=== PATIENT | male | born 1960 | race Caucasian/White ===

== ENCOUNTER 2021-08-23 14:31 | Outpatient (REF) | payer OTHER, SELFPAY ==
--- NOTE | ~2021-08-23 | XR_ITS ---
EXAMINATION: XR CHEST CLINICAL INFORMATION: Cough. COMPARISON: None TECHNIQUE: 2 views of the chest were obtained. FINDINGS: No significant abnormality is noted involving the heart, lungs, mediastinum, bony thorax or soft tissues. XR/XR chest 2V IMPRESSION: Unremarkable chest examination.
== END 2021-08-23 14:32 | disposition home or self-care (01) ==
LOC: HO.HMGCX 14:31
PROVIDERS: Visit Provider Physician Assistant Medical
DX: R05.9 Cough, unspecified (principal)
CPT/HCPCS: 71046

== ENCOUNTER 2021-08-25 10:39 | Outpatient (REF) | payer OTHER, SELFPAY ==
[2021-08-25 11:06] LABS: Binax Internal Control QC Valid; Binax Now Covid-19 Ag Negative (Negative)
== END 2021-08-25 10:40 | disposition home or self-care (01) ==
LOC: HO.HMGCLDS 10:39
PROVIDERS: Visit Provider Physician Assistant Medical
DX: Z13.89 Encounter for screening for other disorder (principal)

== ENCOUNTER 2022-01-26 08:28 | Outpatient (REF) | payer OTHER, SELFPAY ==
[2022-01-26 11:18] LABS: MANUAL DIFF FLAG NO
[2022-01-26 11:28] LABS: Basophils Absolute Auto 0.1 X10*3/uL (0.0-0.2); Eosinophils Absolute Auto 0.1 X10*3/uL (0.0-0.4); Eosinophils Percent Auto 1.4 % (0-4); Hematocrit 42.4 % (42.0-52.0); Hemoglobin 14.3 g/dl (14.0-18.0); Imm Gran Abs Auto 0.02 X10*3/uL (0.00-0.03); Imm Gran Pct Auto 0.4 % (0.0-0.4); Lymphocytes Absolute Auto 0.9 X10*3/uL (1.2-4.9); Lymphocytes Percent Auto 17.4 % (20-40); Mean Corpuscular HGB Conc 33.7 g/dl (31.0-36.0); Mean Corpuscular Hemoglobin 32.4 pg (27.0-33.0); Mean Corpuscular Volume 95.9 fL (80.0-98.0); Mean Platelet Volume 10.8 fL (9.4-12.4); Monocytes Absolute Auto 0.6 X10*3/uL (0.1-1.2); Monocytes Percent Auto 11.9 % (2-11); Neutrophils Absolute Auto 3.3 x10*3/uL (2.0-8.3); Neutrophils Percent Auto 67.9 % (45-73); Platelet Count 253 X10*3/uL (160-400); Red Blood Count 4.42 X10*6/uL (4.60-5.80); Red Cell Distribution Width 12.8 % (11.0-16.0); White Blood Count 4.9 X10*3/uL (4.8-10.8)
[2022-01-26 11:43] LABS: Appearance Urine CLEAR; Color Urine YELLOW; Glucose Urine UA NEG (NEG); Leukocyte Esterase Urine NEG (NEG); Nitrite Urine NEG (NEG); PH 5.5 (5.0-8.0); Specific Gravity - Urine 1.025 (1.005-1.025); UACC Culture Trigger NO; Urine Blood 1+ (NEG); Urine Ketones NEG (NEG); Urine Protein NEG (NEG-TRACE)
[2022-01-26 11:56] LABS: Bacteria Urine TRACE /LPF; Mucus Urine 1+ /LPF; Squamous Epithelial Cell Urine 1+ /LPF; WBC Urine 0-2 /HPF (0-4)
[2022-01-26 12:04] LABS: Alanine Aminotransferase 22 U/L (0-40); Albumin Level 4.4 g/dL (3.5-5.0); Alkaline Phosphatase 85 U/L (39-117); Anion Gap 13 (12-20); Aspartate Amino Transferase 17 U/L (5-37); Bilirubin Total 0.4 mg/dL (0.0-1.0); Blood Urea Nitrogen 15 mg/dL (9-16); Calcium 9.2 mg/dL (8.4-10.2); Carbon Dioxide 25 mmol/L (22-29); Chloride 106 mmol/L (96-108); Cholesterol 225 mg/dL; Estimated Glomerular Filt Rate 52; Glucose Fasting 106 mg/dL (60-99); HDL Cholesterol 53 mg/dL; LDL Cholesterol Calculated 158 mg/dl; Potassium 4.5 mmol/L (3.3-5.1); Sodium 139 mmol/L (135-145); Total Protein 7.3 g/dL (6.5-8.0); Triglycerides 70 mg/dL
[2022-01-26 12:08] LABS: Prostate Specific Antigen Scr 0.54 ng/mL (<0.05-4.0)
== END 2022-01-26 08:29 | disposition home or self-care (01) ==
LOC: HO.HMGCLDS 08:28
PROVIDERS: PCP Nurse Practitioner Family; Visit Provider Nurse Practitioner Family
DX: Z00.00 Encounter for general adult medical examination without abnormal findings (principal); Z12.5 Encounter for screening for malignant neoplasm of prostate
CPT/HCPCS: 36415; 80053; 80061; 81001; 84153; 84439; 84443; 85025

== ENCOUNTER 2022-04-10 07:26 | Outpatient (REF) | payer OTHER, SELFPAY ==
[2022-04-10 11:12] LABS: Urine Cytology See Pathology rpt
[2022-04-10 11:15] LABS: Appearance Urine Clear; Color Urine Yellow; Glucose Urine UA Negative (Negative); Leukocyte Esterase Urine Negative (Negative); Nitrite Urine Negative (Negative); Specific Gravity - Urine 1.015 (1.005-1.025); Urine Blood Negative (Negative); Urine Ketones Negative (Negative); Urine Protein Negative (Neg-Trace)
[2022-04-14 21:17] LABS: Thyroid Peroxidase Antibodies 1 IU/mL (<9)
== END 2022-04-10 07:27 | disposition home or self-care (01) ==
LOC: HO.HMGCLDS 07:26
PROVIDERS: PCP Nurse Practitioner Family; Visit Provider Nurse Practitioner Family
DX: Z00.00 Encounter for general adult medical examination without abnormal findings (principal); R79.89 Other specified abnormal findings of blood chemistry; R31.29 Other microscopic hematuria
CPT/HCPCS: 36415; 81003; 84443; 86376; 87086; 88112

== ENCOUNTER 2022-05-04 08:31 | Outpatient (REF) | payer OTHER, SELFPAY ==
--- NOTE | ~2022-05-04 | CT_ITS ---
EXAMINATION: CT ABDOMEN AND PELVIS WITHOUT CONTRAST CLINICAL INFORMATION: Ureteral stone COMPARISON: None TECHNIQUE: Multidetector volumetric imaging was performed from the superior aspect of the liver through the pubic symphysis. Sagittal and coronal reformatted images were obtained on the technologist's workstation. This CT examination was performed using dose optimization techniques as appropriate, variously including the following: *Automated exposure control *Adjustment of mA and/or kV according to patient size (this includes techniques or standardized protocols for targeted exams where dose is matched to indication/reason for exam; i.e. extremities or head) *Use of iterative reconstruction technique DLP: 664 mGy-cm FINDINGS: LUNG BASES: The visualized lung bases are clear. There is a small esophageal hernia. LIVER, GALLBLADDER, AND BILIARY TREE: The liver is normal in size, shape, and attenuation. No focal hepatic lesion or biliary ductal dilatation is present. The gallbladder is unremarkable with no evidence of radiopaque gallstones, gallbladder wall thickening, or obvious pericholecystic inflammatory changes. PANCREAS: Unremarkable. SPLEEN: Unremarkable. ADRENAL GLANDS: Unremarkable. KIDNEYS AND URETERS: The kidneys are normal in size, shape, and attenuation. There are small right peripelvic cysts. There is a 1 cm low-attenuation lesion in the lower pole the left kidney that probably represents a cyst. There is a 5 mm low-attenuation lesion exophytic to the upper pole of the left kidney that probably represents a cyst. No renal stone is seen. No hydronephrosis, ureteral dilatation or ureteral stone is seen. BLADDER: There are 2 cysts in the right pelvis probably representing bladder diverticuli. These measure 1 and 2 cm. The smaller area is near the right UVJ region. The bladder is otherwise normal. GASTROINTESTINAL TRACT: There is diverticulosis of the colon. The small and large bowel are otherwise unremarkable. The appendix is unremarkable. ABDOMINAL WALL: No significant hernia is appreciated. LYMPH NODES: Normal. VASCULAR: Unremarkable. PELVIC VISCERA: Unremarkable. OSSEOUS STRUCTURES: Unremarkable. CT/CT abdomen pelvis wo IV con IMPRESSION: Probable bilateral small renal cysts. No renal stone or hydronephrosis. No ureteral dilatation or ureteral stone. 2 cysts in the right pelvis probably representing bladder diverticuli measuring 1 and 2 cm. Smaller lesion is adjacent to the right UVJ region. Diverticulosis of the colon. Small esophageal hernia. Fleischner guidelines were followed.
== END 2022-05-04 08:32 | disposition home or self-care (01) ==
LOC: HO.CT 08:31
PROVIDERS: Visit Provider Nurse Practitioner Family
DX: R10.9 Unspecified abdominal pain (principal); Z87.442 Personal history of urinary calculi
CPT/HCPCS: 74176

== ENCOUNTER 2022-08-05 10:52 | Outpatient (REF) | payer OTHER, SELFPAY ==
[2022-08-05 16:25] LABS: Urine Cytology See Pathology rpt
== END 2022-08-05 10:53 | disposition home or self-care (01) ==
LOC: HO.LAB 10:52
PROVIDERS: PCP Nurse Practitioner Family; Visit Provider Nurse Practitioner Family
DX: R31.29 Other microscopic hematuria (principal)
CPT/HCPCS: 51798; 88112

== ENCOUNTER → 2022-09-17 12:53 | Outpatient (BNVA) | payer OTHER, SELFPAY | PROVIDERS: PCP Nurse Practitioner Family; Visit Provider Urology | DX: R31.29 Other microscopic hematuria (principal) | CPT/HCPCS: 52000 ==

== ENCOUNTER 2023-01-22 09:40 | Outpatient (REF) | payer OTHER, SELFPAY ==
--- NOTE | ~2023-01-22 | US_ITS ---
EXAMINATION: US ABDOMEN COMPLETE CLINICAL INFORMATION: Unspecified abdominal pain. COMPARISON: CT abdomen and pelvis 05/04/2022. TECHNIQUE: Real-time imaging of the abdominal viscera. Technically suboptimal study secondary to bowel gas. FINDINGS: PANCREAS: Normal ABDOMINAL AORTA: Normal in caliber. Atherosclerotic disease with vessel wall calcification. INFERIOR VENA CAVA: Visualized portions are normal. LIVER: The liver is normal in size. The liver contour is normal. Liver echotexture is increased. No focal hepatic lesion. There is no intrahepatic biliary duct dilatation seen. GALLBLADDER: Normal. The gallbladder is physiologically distended without evidence of stones, sludge, polyps, wall thickening or pericholecystic fluid. COMMON BILE DUCT: Normal in caliber measuring 0.26 cm in diameter. RIGHT KIDNEY: Small peripelvic cysts. No imaging follow-up recommended. No hydronephrosis or renal calculi. The kidney measures 9.4 cm in maximum dimension. LEFT KIDNEY: 2 small cortical cysts measuring 1.2 x 1.3 x 1.5 cm and 0.9 x 0.8 x 0.9 cm. The latter cyst likely a milk of calcium cyst. No imaging follow-up recommended. No hydronephrosis or renal calculi. The kidney measures 9.5 cm in maximum dimension. SPLEEN: Normal. The spleen measures 8.3 cm in maximum dimension. FREE FLUID: None. US/US abdomen complete IMPRESSION: Echogenic liver. Differential would include fatty infiltration of hepatocellular disease.
[2023-01-22 11:17] LABS: MANUAL DIFF FLAG NO
[2023-01-22 11:32] LABS: Appearance Urine Clear; Color Urine Yellow; Glucose Urine UA Negative (Negative); Leukocyte Esterase Urine Negative (Negative); Nitrite Urine Negative (Negative); PH 5.5 (5.0-9.0); Specific Gravity - Urine 1.015 (1.005-1.025); Urine Blood Negative (Negative); Urine Ketones Negative (Negative); Urine Protein Negative (Neg-Trace)
[2023-01-22 11:38] LABS: Basophils Absolute Auto 0.1 X10*3/uL (0.0-0.2); Basophils Percent Auto 0.9 % (0-2); Eosinophils Absolute Auto 0.1 X10*3/uL (0.0-0.4); Eosinophils Percent Auto 2.6 % (0-4); Hematocrit 43.7 % (42.0-52.0); Hemoglobin 14.6 g/dl (14.0-18.0); Imm Gran Abs Auto 0.02 X10*3/uL (0.00-0.03); Imm Gran Pct Auto 0.4 % (0.0-0.4); Lymphocytes Absolute Auto 1.7 X10*3/uL (1.2-4.9); Mean Corpuscular HGB Conc 33.4 g/dl (31.0-36.0); Mean Corpuscular Hemoglobin 32.3 pg (27.0-33.0); Mean Corpuscular Volume 96.7 fL (80.0-98.0); Mean Platelet Volume 10.6 fL (9.4-12.4); Monocytes Absolute Auto 0.4 X10*3/uL (0.1-1.2); Monocytes Percent Auto 7.5 % (2-11); Neutrophils Absolute Auto 3.2 x10*3/uL (2.0-8.3); Neutrophils Percent Auto 57.6 % (45-73); Platelet Count 300 X10*3/uL (160-400); Red Blood Count 4.52 X10*6/uL (4.60-5.80); Red Cell Distribution Width 12.6 % (11.0-16.0); White Blood Count 5.5 X10*3/uL (4.8-10.8)
[2023-01-22 12:19] LABS: Prostate Specific Antigen Scr 0.84 ng/mL (<0.05-4.0)
[2023-01-22 12:22] LABS: Alanine Aminotransferase 20 U/L (0-40); Albumin Level 4.4 g/dL (3.5-5.0); Alkaline Phosphatase 62 U/L (39-117); Anion Gap 12 (12-20); Aspartate Amino Transferase 20 U/L (5-37); Bilirubin Total 0.7 mg/dL (0.0-1.0); Blood Urea Nitrogen 17 mg/dL (9-16); Calcium 9.6 mg/dL (8.4-10.2); Carbon Dioxide 26 mmol/L (22-29); Chloride 105 mmol/L (96-108); Cholesterol 256 mg/dL; Estimated Glomerular Filt Rate > 60; Glucose Fasting 102 mg/dL (60-99); HDL Cholesterol 70 mg/dL; LDL Cholesterol Calculated 165 mg/dl; Potassium 4.6 mmol/L (3.3-5.1); Sodium 138 mmol/L (135-145); Total Protein 7.3 g/dL (6.5-8.0); Triglycerides 106 mg/dL
[2023-01-22 12:38] LABS: TSH reflex Free T4 4.39 uIU/mL (0.32-4.0)
[2023-01-22 14:31] LABS: Free T4 (Free Thyroxine) 0.85 ng/dL (0.71-1.85)
== END 2023-01-22 09:41 | disposition home or self-care (01) ==
LOC: HO.HMGCX 09:40
PROVIDERS: PCP Nurse Practitioner Family; Visit Provider Nurse Practitioner Family
DX: Z00.00 Encounter for general adult medical examination without abnormal findings (principal); Z12.5 Encounter for screening for malignant neoplasm of prostate; R10.9 Unspecified abdominal pain; E78.5 Hyperlipidemia, unspecified; R94.6 Abnormal results of thyroid function studies
CPT/HCPCS: 36415; 76700; 80053; 80061; 81003; 84153; 84439; 84443; 85025

== ENCOUNTER 2023-04-21 10:09 | Outpatient (REF) | payer MEDICAID, SELFPAY ==
[2023-04-21 13:51] LABS: Cholesterol 241 mg/dL (<200); HDL Cholesterol 60 mg/dL (>40); LDL Cholesterol Calculated 161 mg/dL (<100); Triglycerides 102 mg/dL (<150)
[2023-04-21 14:36] LABS: Free T4 (Free Thyroxine) 0.84 ng/dL (0.71-1.85)
[2023-04-23 02:53] LABS: Thyroid Peroxidase Antibodies 1 IU/mL (<9)
== END 2023-04-21 10:10 | disposition home or self-care (01) ==
LOC: HO.HMGCLDS 10:09
PROVIDERS: PCP Nurse Practitioner Family; Visit Provider Nurse Practitioner Family
DX: R79.89 Other specified abnormal findings of blood chemistry (principal); E78.5 Hyperlipidemia, unspecified
CPT/HCPCS: 36415; 80061; 84439; 84443; 86376

== ENCOUNTER → 2023-08-06 14:15 | Outpatient (BNVA) | payer SELFPAY | PROVIDERS: PCP Nurse Practitioner Family; Visit Provider Physician Assistant | DX: Z02.79 Encounter for issue of other medical certificate (principal) ==

== ENCOUNTER 2023-09-29 08:05 | Outpatient (AMB) | payer OTHER, SELFPAY ==
[2023-09-29 08:08] VITALS: BP 124/80; PULSE 113; TEMP 36.6; O2SAT 97; BMI 29.8
--- NOTE | 2023-09-29 08:08 | MHC.OFFWIV ---
Intake Vital Signs 09/29/23 08:08 Height 5 ft 6.5 in Weight 187 lb 4 oz BMI 29.8 BP 124/80 Blood Pressure Location Rt brachial Position Sitting Pulse 113 H Pulse Source Pulse Oximeter Temp 97.8 F Temp Source Oral Pulse Oximetry (%) 97 Oxygen Delivery Method Room Air Intake Visit Reasons: EP Chills, fever, cough, congestion/?Kidney stones Intake Note: pt is here for co fever, child, congestion, cough and abdominal discomfort Patient Tobacco Use Status: Former Tobacco user Allergies No Known Allergies Allergy (Verified 09/29/23 08:18) HPI HPI Comments History of Present Illness Details Patient is a 63yo M who presents to office with flu complaint He has hx of renal colic and R flank pain in past which i from unknown etiology and beleived kidney stones He presents with symptoms x 2 weeks ongoing +chill, fever, headaches, coughing, runny nose + body aches and fatigue He said coughing so much he has aching in back He had dysuria 2 weeks ago but resolved Unsure if back pain is from stones or coughing No frequency, urgency, or hematuria He said eating and drinking normal No vomiting or diarrhea He has tried tylenol, motrin, flonase without relief COVID + Wednesday [facility] Medical History (Updated 09/29/23 @ 08:42 by Wanda Benson PA-C) Microscopic hematuria Osteoarthritis Family History Father Brain aneurysm Mother No problems noted. Social History Housing: House Patient Tobacco Use Status: Former Tobacco user e-Cigarette/Vaping Use: Never Used Second Hand Smoke Exposure: No Current occupational status: employed Cognitive needs: No Hearing needs: No Vision needs: No Review of Systems Const Reports body aches, Reports chills, Reports fatigue, Reports fever(s) and Reports headache(s) Eyes Denies blurry vision ENT Denies dizziness, Denies otalgia, Reports headache(s), Reports nasal congestion, Reports nasal discharge, Denies sinus pain, Denies sinus pressure, Denies sore throat and Denies throat swelling Card Denies chest pain and Denies dyspnea Resp Reports chest congestion, Reports cough, Denies dyspnea and Denies wheezing GI Denies abdominal pain, Denies diarrhea, Denies nausea and Denies vomiting Denies hematuria, Reports dysuria, Reports flank pain, Denies urinary frequency, Denies urinary hesitancy, Denies urinary incontinence and Denies urinary urgency Musc Reports back pain and Reports myalgias Neuro Denies dizziness and Reports headache(s) Endo Reports fatigue Aller/Immun Denies throat swelling and Denies wheezing Physical Exam Vital Signs: Last Vital Signs Temp 97.8 F 09/29/23 08:08 Pulse 113 H 09/29/23 08:08 BP 124/80 09/29/23 08:08 Pulse Ox 97 09/29/23 08:08 Oxygen Delivery Method Room Air 09/29/23 08:08 BMI result Body Mass Index 29.8 General: Non-toxic, NAD. Speaking full sentences. Skin: Warm dry throughout Eye: EOMI HENT: Airway patent. Uvula midline. No pharyngeal erythema or edema. No [employer]. +rhinorrhea Bilateral canals clear. TM non-erythematous, non-bulging. No TM perforation or hemotympanum noted. Respiratory: CTA bilaterally. No wheezes, rales or rhonchi Cardiac: RRR. No murmur MSK: Full ROM extremities. Neurology: A/O. No aphasia or facial droop. Gait without abnormality Psych: Good mood and affect Results AMB Urinalysis, Automated UA Leukoctes 0 Nick/uL Last Edit by Amanda Jalloh CMA on 09/29/23 08:23 UA Nitrite Negative Last Edit by Amanda Jalloh CMA on 09/29/23 08:23 UA Urobilinogen 0.2 mg/dL Last Edit by Amanda Jalloh CMA on 09/29/23 08:23 UA Protein 15 mg/dL Last Edit by Amanda Jalloh CMA on 09/29/23 08:23 UA pH 6.0 Last Edit by Amanda Jalloh CMA on 09/29/23 08:23 UA Blood 80 Shahab/uL Last Edit by Amanda Jalloh CMA on 09/29/23 08:23 UA Specific [place] 1.025 Last Edit by Amanda Jalloh CMA on 09/29/23 08:23 UA Ketone Negative Last Edit by Amanda Jalloh CMA on 02/21/24 08:23 UA Bilirubin 1 mg/dL Last Edit by Amanda Jalloh CMA on 09/29/23 08:23 UA Glucose 0 mg/dL Last Edit by Amanda Jalloh CMA on 09/29/23 08:23 Results Reviewed Results Reviewed: Laboratory Last Values Urine pH (Auto) 6.0 09/29/23 08:21 Specific [place] (Auto) 1.025 09/29/23 08:21 Urine Protein (Auto) 15 mg/dL 09/29/23 08:21 Glucose (UA)(Auto) 0 mg/dL 09/29/23 08:21 Urine Ketones (Auto) Negative 09/29/23 08:21 Urine Blood (Auto) 80 Shahab/uL 09/29/23 08:21 Urine Nitrite (Auto) Negative 09/29/23 08:21 Urine Bilirubin (Auto) 1 mg/dL 09/29/23 08:21 Urine Urobilinogen (Auto) 0.2 mg/dL 09/29/23 08:21 Leukocyte Esterase (Auto) 0 Nick/uL 09/29/23 08:21 Assessment & Plan Assessment & Plan (1) COVID: Code(s): U07.1 - COVID-19 Plan: Patient seen and evaluated. Lungs CTA; offered xray but he declined Works at [employer] so needed confirmed test for covid + for work COVID [employer] ordered and obtained; + result Discussed work note and quarantine Cough syrup with codiene; discussed lethargy. No alcohol or driving. F/U with PCP ER if worse Patient gave verbal understanding and had no additional questions or concerns at time of discharge All questions answered (2) Microscopic hematuria: Code(s): R31.29 - Other microscopic hematuria Plan: This is ongoing issue Pt aware it is + in urine today Recommended f/u with urology He has no leuks or nitrates so no concern ongoing infection DIscussed need to increase fluid hydration Orders: Orders AMB Urinalysis Automated Today Z13.9 - Encounter for screening, unspecified [employer] Covid-19 Ag Today U07.1 - COVID-19 Medications: New codeine-guaifenesin 10-100 mg/5 mL 5 mL PO Q6H PRN 118 mL 0RF cough Coding Level of Care Code Est Pt Level 3 (78652) Diagnoses COVID U07.1 Microscopic hematuria R31.29
== END 2023-09-29 09:13 | disposition home or self-care (01) ==
PROVIDERS: PCP Nurse Practitioner Family; Visit Provider Physician Assistant
DX: U07.1 COVID-19 (principal); R31.29 Other microscopic hematuria
CPT/HCPCS: 81003; 99213

== ENCOUNTER 2023-09-29 08:30 | Outpatient (REF) | payer OTHER, SELFPAY ==
[2023-09-29 08:55] LABS: Binax Internal Control QC Valid; Binax Now Covid-19 Ag Positive (Negative); Binax Performed by: PAULP
== END 2023-09-29 08:31 | disposition home or self-care (01) ==
LOC: HO.HMGCLDS 08:30
PROVIDERS: PCP Nurse Practitioner Family; Visit Provider Physician Assistant
DX: U07.1 COVID-19 (principal)
CPT/HCPCS: 87811

== ENCOUNTER 2024-01-24 14:55 | Outpatient (REF) | payer OTHER, SELFPAY ==
[2024-01-24 16:28] LABS: Alanine Aminotransferase 22 U/L (0-40); Albumin Level 4.3 g/dL (3.5-5.0); Alkaline Phosphatase 81 U/L (39-117); Anion Gap 13 (12-20); Aspartate Amino Transferase 19 U/L (5-37); Bilirubin Total 0.6 mg/dL (0.0-1.0); Blood Urea Nitrogen 13 mg/dL (9-16); Carbon Dioxide 25 mmol/L (22-29); Chloride 106 mmol/L (96-108); Cholesterol 177 mg/dL (<200); Estimated Glomerular Filt Rate > 60; Glucose Fasting 93 mg/dL (60-99); HDL Cholesterol 63 mg/dL (>40); LDL Cholesterol Calculated 92 mg/dL (<100); Potassium 3.9 mmol/L (3.3-5.1); Sodium 140 mmol/L (135-145); Total Protein 7.3 g/dL (6.5-8.0); Triglycerides 112 mg/dL (<150)
== END 2024-01-24 14:56 | disposition home or self-care (01) ==
LOC: HO.HMGCLDS 14:55
PROVIDERS: PCP Nurse Practitioner Family; Visit Provider Nurse Practitioner Family
DX: E78.5 Hyperlipidemia, unspecified (principal)
CPT/HCPCS: 36415; 80053; 80061

== ENCOUNTER 2024-01-25 15:01 | Outpatient (AMB) | payer OTHER, SELFPAY ==
--- NOTE | 2024-01-25 15:07 | MHC.PC.OV ---
Vital Signs 01/25/24 15:10 Height 5 ft 6.5 in Weight 196 lb BMI 31.2 BP 130/80 Blood Pressure Location Lt brachial Position Sitting Pulse 74 Pulse Source Pulse Oximeter Pulse Oximetry (%) 95 Oxygen Delivery Method Room Air Intake Visit Reasons: PE Intake Note: Patient here for physical exam. Allergies No Known Allergies Allergy (Verified 01/25/24 15:39) Medication List - Last Reconciled 01/25/24 by ODETTE Morfin atorvastatin 20 mg PO BEDTIME omeprazole 40 mg PO QAM 90 days Tobacco use date assessed: 01/25/24 Dental Screening Dental Screen Date: 01/25/24 Did you have a dental visit in the last 12 months?: No Did you have a dental problem in the last 6 months where you did not have access to dental care?: No Was dental information given to patient?: No HPI PE HPI Details Pt is here for a PE. Will order labs. Due for PSA, will order. Denies dribbling with urination, weak stream, and frequent nocturia. PFSH Medical History Microscopic hematuria Osteoarthritis Family History Father Brain aneurysm Mother No problems noted. Social History Housing: House Patient Tobacco Use Status: Former Tobacco user e-Cigarette/Vaping Use: Never Used Second Hand Smoke Exposure: No Current occupational status: employed Cognitive needs: No Hearing needs: No Vision needs: No Questionnaire PHQ-9 Over the last 2 weeks, how often have you been bothered by any of the following problems? 62190 - PHQ-9 Billing: Patient declined-do not bill Source: Developed by Drs. Godwin Bryan, Harleen Singh, Yair Cueto and colleagues, with an educational jorge a from [employer]. Thrive Questionnaire Date Thrive assessed: 01/25/24 What is your living situation today?: I choose not to answer this question Within the past 12 months, did the food you bought not last and you didn't have the money to get more?: I choose not to answer this question Within the past 12 months, did you worry whether your food would run out before you got money to buy more?: I choose not to answer this question Do you have trouble paying for medicines?: I choose not to answer this question Do you have trouble getting transportation to medical appointments?: I choose not to answer this question Do you have trouble paying your heating and electricity bill?: I choose not to answer this question Do you have trouble taking care of your child, family member or friend?: I choose not to answer this question Do you have trouble with day-to-day activities such as bathing, preparing meals, shopping, managing finances, etc.?: I choose not to answer this question Are you currently unemployed and looking for a job?: I choose not to answer this question Are you interested in more education?: I choose not to answer this question Currently or been in a relationship where the following occur: I choose not to answer this question THRIVE Score: 0 AUDIT C Alcohol Use Questionnaire (AUDIT-C) 1. How often do you have a drink containing alcohol?: 2-3 times a week 2. How many drinks containing alcohol do you have on a typical day when you are drinking?: 1 or 2 3. How often do you have six or more drinks on one occasion?: Never Total Score: 3 Score Reviewed/Action Taken: No FRANCISCA-7 AMB Questionnaire FRANCISCA-7 Date FRANCISCA - 7 assessed: 01/25/24 Source: Developed by Drs. Godwin Bryan, Harleen Singh, Yair Cueto and colleagues, with an educational jorge a from [employer]. FRANCISCA-7 Assessment Billing FRANCISCA-7 Assessment Tool: pt declined-do not bill Review of Systems Const Denies chills and Denies fever(s) Eyes Denies blurry vision ENT Denies vertigo, Denies dizziness and Denies sore throat Card Denies chest pain at rest, Denies chest pain with activity, Denies diaphoresis, Denies dyspnea and Denies dyspnea on exertion Resp Denies cough, Denies dyspnea, Denies dyspnea on exertion and Denies wheezing GI Denies abdominal pain, Denies melena, Denies hematochezia, Denies constipation, Denies diarrhea and Denies loose stools Denies hematuria Musc Denies numbness and Denies tingling Skin/Breast Denies lesions Neuro Denies vertigo, Denies dizziness, Denies numbness and Denies tingling Psych Denies anxiety, Denies depression, Denies homicidal ideation, Denies suicidal ideation and Denies other (substance abuse) Aller/Immun Denies wheezing Physical exam (Primary Care) Vital Signs: Last Vital Signs Pulse 74 01/25/24 15:10 BP 130/80 01/25/24 15:10 Pulse Ox 95 01/25/24 15:10 Oxygen Delivery Method Room Air 01/25/24 15:10 BMI result Body Mass Index 31.2 Tobacco/Smoking Status: Tobacco use Status Tobacco use date assessed 01/25/24 01/25/24 15:16 Patient Tobacco Use Status Former Tobacco user 01/25/24 15:09 e-Cigarette/Vaping Use Never Used 01/25/24 15:09 Thrive Assessment: Date of Thrive Assessment Date Thrive assessed 01/25/24 01/25/24 15:16 Currently or been in a relationship where the following occur: I choose not to answer this question Const General: cooperative Nutritional Appearance: obese Orientation/consciousness: patient oriented x3 HENMT Head: Yes normal to inspection, Yes normocephalic and Yes atraumatic Ears: TM's normal bilaterally Eyes General: appearance normal, both eyes and all related structures Alignment and Position: alignment normal and position normal Neck Neck: Yes normal visual inspection and Yes no lymphadenopathy Thyroid: Thyroid normal Resp Effort & Inspection: normal respiratory effort Auscultation: clear to auscultation bilaterally and diminished lung sounds Cardio Rate: regular rate Rhythm: regular rhythm Heart sounds: S1 normal heart sound present, S2 normal heart sound present and no murmurs GI Palpation (GI): Soft to palpation and nontender Auscultation: normal bowel sounds Male General Exam: Yes normal external exam Penis: normal penis Scrotum: scrotum normal, testes descended bilaterally and no inguinal hernias Testes: no testicular mass Skin Rashes: no rashes Neuro General: patient oriented x3, moves all extremities, no focal motor deficits and deep tendon reflexes 2+ bilaterally Romberg Test: Negative Psych Appearance: grossly normal Mental Status: mental status grossly normal Speech and movement: Normal speech and movement present Affect: normal affect Attitude: cooperative Thought process: Normal thought process present Thought content: Normal thought content present Insight: Good insight present (Psych) Judgement: Good judgement present (Psych) Assessment and Plan Assessment & Plan (1) Physical exam: Code(s): Z00.00 - Encounter for general adult medical examination without abnormal findings Plan: Labs ordered Plan The patient agreed to the use of a medical laboratory scientist for this encounter. Scribed for ODETTE Nixon by Isabel Martin medical laboratory scientist, on 01/25/2024 at 15:40 EST. Orders: Orders TSH reflex Free T4 Today Z00.00 - Encounter for general adult medical examination without abnormal findings Complete Blood Count Auto Diff Today Z00.00 - Encounter for general adult medical examination without abnormal findings Prostate Specific Antigen Scr Today Z00.00 - Encounter for general adult medical examination without abnormal findings Coding Level of Care Code Est Pt Prev Care 40-64y(33381) Diagnoses Physical exam Z00.00
[2024-01-25 15:10] VITALS: BP 130/80; PULSE 74; O2SAT 95; BMI 31.2
== END 2024-01-25 15:48 | disposition home or self-care (01) ==
PROVIDERS: PCP Nurse Practitioner Family; Visit Provider Nurse Practitioner Family
DX: Z00.00 Encounter for general adult medical examination without abnormal findings (principal)
CPT/HCPCS: 99396

== ENCOUNTER 2024-01-29 07:02 | Outpatient (REF) | payer OTHER, SELFPAY ==
[2024-01-29 11:29] LABS: MANUAL DIFF FLAG NO
[2024-01-29 11:32] LABS: Basophils Absolute Auto 0.1 X10*3/uL (0.0-0.2); Eosinophils Absolute Auto 0.1 X10*3/uL (0.0-0.4); Eosinophils Percent Auto 2.6 % (0-4); Hemoglobin 13.3 g/dl (14.0-18.0); Imm Gran Abs Auto 0.03 X10*3/uL (0.00-0.03); Imm Gran Pct Auto 0.6 % (0.0-0.4); Lymphocytes Absolute Auto 1.3 X10*3/uL (1.2-4.9); Mean Corpuscular HGB Conc 33.3 g/dl (31.0-36.0); Mean Corpuscular Hemoglobin 32.7 pg (27.0-33.0); Mean Corpuscular Volume 98.3 fL (80.0-98.0); Monocytes Absolute Auto 0.4 X10*3/uL (0.1-1.2); Monocytes Percent Auto 8.7 % (2-11); Neutrophils Percent Auto 61.1 % (45-73); Platelet Count 264 X10*3/uL (160-400); Red Blood Count 4.07 X10*6/uL (4.60-5.80); Red Cell Distribution Width 12.7 % (11.0-16.0)
[2024-01-29 11:41] LABS: Appearance Urine Cloudy; Color Urine Yellow; Glucose Urine UA Negative (Negative); Leukocyte Esterase Urine Negative (Negative); Nitrite Urine Negative (Negative); Specific Gravity - Urine 1.025 (1.005-1.025); Urine Blood Negative (Negative); Urine Ketones Trace mg/dL (Negative); Urine Protein Negative (Neg-Trace)
[2024-01-29 12:08] LABS: Prostate Specific Antigen Scr 0.52 ng/mL (<0.05-4.0)
[2024-01-29 12:09] LABS: TSH reflex Free T4 3.25 uIU/mL (0.32-4.0)
== END 2024-01-29 07:03 | disposition home or self-care (01) ==
LOC: HO.HMGCLDS 07:02
PROVIDERS: PCP Nurse Practitioner Family; Visit Provider Nurse Practitioner Family
DX: Z00.00 Encounter for general adult medical examination without abnormal findings (principal); Z12.5 Encounter for screening for malignant neoplasm of prostate; R31.29 Other microscopic hematuria; R79.89 Other specified abnormal findings of blood chemistry
CPT/HCPCS: 36415; 81003; 84153; 84443; 85025

== ENCOUNTER 2024-05-15 15:16 | Outpatient (REF) | payer OTHER, SELFPAY ==
[2024-05-15 16:13] LABS: MANUAL DIFF FLAG NO
[2024-05-15 16:36] LABS: Basophils Absolute Auto 0.1 X10*3/uL (0.0-0.2); Basophils Percent Auto 0.7 % (0-2); Eosinophils Absolute Auto 0.1 X10*3/uL (0.0-0.4); Eosinophils Percent Auto 1.1 % (0-4); Hematocrit 40.5 % (42.0-52.0); Hemoglobin 13.8 g/dl (14.0-18.0); Imm Gran Abs Auto 0.02 X10*3/uL (0.00-0.03); Imm Gran Pct Auto 0.3 % (0.0-0.4); Immature Retic Fraction 14.6 % (2.3-13.4); Lymphocytes Absolute Auto 1.7 X10*3/uL (1.2-4.9); Mean Corpuscular HGB Conc 34.1 g/dl (31.0-36.0); Mean Corpuscular Hemoglobin 32.3 pg (27.0-33.0); Mean Corpuscular Volume 94.8 fL (80.0-98.0); Mean Platelet Volume 10.3 fL (9.4-12.4); Monocytes Absolute Auto 0.6 X10*3/uL (0.1-1.2); Monocytes Percent Auto 7.8 % (2-11); Neutrophils Absolute Auto 4.6 x10*3/uL (2.0-8.3); Neutrophils Percent Auto 66.1 % (45-73); Platelet Count 269 X10*3/uL (160-400); Red Blood Count 4.27 X10*6/uL (4.60-5.80); Red Cell Distribution Width 12.9 % (11.0-16.0); Retic HGB Equivalent 36.9 pg (30.0-35.0); Reticulocyte Percent 2.2 % (0.5-1.8); Reticulocytes Absolute 0.094 X10*6/uL (0.026-0.095)
[2024-05-15 16:57] LABS: Iron 164 mcg/dL (45-160); Percent Iron Saturation 40 % (15-50); Total Iron Binding Capacity 406 mcg/dL (228-428); Unsaturated Iron Binding 242 ug/dL
[2024-05-15 17:07] LABS: Ferritin 40 ng/mL (20-250); TSH reflex Free T4 6.02 uIU/mL (0.32-4.0)
[2024-05-15 17:19] LABS: Prostate Specific Antigen Scr 0.86 ng/mL (<0.05-4.0); Vitamin B12 316 pg/mL (200-900)
[2024-05-19 09:13] LABS: MCV 96.7 fL (80.0-100.0); RBC 4.24 Million/uL (4.20-5.80); RDW 12.7 % (11.0-15.0)
== END 2024-05-15 15:17 | disposition home or self-care (01) ==
LOC: HO.HMGCLDS 15:16
PROVIDERS: PCP Nurse Practitioner Family; Visit Provider Nurse Practitioner Family
DX: Z00.00 Encounter for general adult medical examination without abnormal findings (principal); D75.89 Other specified diseases of blood and blood-forming organs; R31.29 Other microscopic hematuria; R79.89 Other specified abnormal findings of blood chemistry; Z12.5 Encounter for screening for malignant neoplasm of prostate
CPT/HCPCS: 36415; 82607; 82728; 82746; 83020; 83540; 84153; 84439; 84443; 85014; 85018; 85025; 85041; 85045

== ENCOUNTER 2024-07-12 08:05 | Emergency (ER) | payer OTHER, SELFPAY ==
--- NOTE | ~2024-07-12 | CT_ITS ---
EXAMINATION: CT ABDOMEN AND PELVIS WITHOUT CONTRAST CLINICAL INFORMATION: Bilateral flank pain. COMPARISON: CT dated May 04, 2022. TECHNIQUE: Multidetector volumetric imaging was performed from the superior aspect of the liver through the pubic symphysis. Sagittal and coronal reformatted images were obtained on the technologist's workstation. This CT examination was performed using dose optimization techniques as appropriate, variously including the following: *Automated exposure control *Adjustment of mA and/or kV according to patient size (this includes techniques or standardized protocols for targeted exams where dose is matched to indication/reason for exam; i.e. extremities or head) *Use of iterative reconstruction technique DLP: 645 mGy-cm FINDINGS: Inadequate evaluation of the intra-abdominal organs and vascular structures due to lack of IV contrast. LUNG BASES: No acute airspace disease or gross pulmonary nodules. Subpleural nodules, left lung base. Hiatal hernia, moderate to large size. LIVER, GALLBLADDER, AND BILIARY TREE: Liver measures 14 cm. No pericholecystic fluid collection or gallbladder wall thickening. No intrahepatic or extrahepatic biliary ductal dilatation. PANCREAS: No peripancreatic fluid collection. No main pancreatic ductal dilatation. SPLEEN: 11 cm. ADRENAL GLANDS: Soft tissue fullness without gross nodular lesion. KIDNEYS AND URETERS: No hydronephrosis. No nephrolithiasis. Fluid density lesions in the parapelvic right kidney. 7 mm exophytic low density measuring fluid density in the upper pole left kidney. Fluid density at the parapelvic left kidney. Focal fluid density in the lower pole left kidney no fully evaluated. BLADDER: Fluid-filled. There is a 2 cm fluid density in the posterior right lateral wall. GASTROINTESTINAL TRACT: Abundant stool. Numerous diverticula mostly in the left hemicolon. No pericolonic edema pattern. No pneumatosis intestinalis. No pneumoperitoneum. No ascites. No fluid collections, peritoneal cavity. Appendix is normal. ABDOMINAL WALL: Small fat-containing periumbilical hernia. LYMPH NODES: Nonspecific mildly prominent mesenteric lymph nodes. VASCULAR: No aneurysm, abdominal aorta. Mixed plaques throughout the infrarenal distal abdominal aorta and iliac arteries. PELVIC VISCERA: Prostate gland is not enlarged. Mild prominent seminal vesicles, nonspecific. OSSEOUS STRUCTURES: No acute fracture or gross listhesis in the axial skeleton. Multilevel thoracolumbar spondylosis. Bony pelvis and coxofemoral joints are intact. Probable bony island's in the pelvis. CT/CT abdomen pelvis wo IV con IMPRESSION: No hydronephrosis or nephrolithiasis. Bilateral renal cysts. Diverticular disease, left hemicolon. Atherosclerosis disease. Hiatal hernia, moderate to large size. Fleischner guidelines were followed. Electronically signed by: Hao Prince MD 07/12/2024 01:16 PM [facility] [place]
--- NOTE | ~2024-07-12 | XR_ITS ---
EXAMINATION: XR CHEST CLINICAL INFORMATION: cough COMPARISON: X-ray dated August 23, 2021 TECHNIQUE: 2 views of the chest were obtained. FINDINGS: Patchy opacity in the right pulmonary hilum with asymmetric prominence of the interstitial markings. No pleural effusion. No pneumothorax. Heart silhouette appears normal in size. Calcified plaque thoracic aorta. There is a round cardiac apex. Osteopenia versus osteoporosis. XR/XR chest 2V IMPRESSION: Concerning acute airspace disease, right lung. Electronically signed by: Hao Prince MD 07/12/2024 08:53 AM EST
[2024-07-12 08:13] VITALS: BP 186/92; PULSE 114; RESP 20; TEMP 36.7; O2SAT 96; BMI 32.4
[2024-07-12 08:50] LABS: Appearance Urine Error; Color Urine Yellow; Glucose Urine UA Negative (Negative); Leukocyte Esterase Urine Negative (Negative); Nitrite Urine Negative (Negative); UMIC TRIGGER UACC YES; Urine Blood Trace (Negative); Urine Ketones Negative (Negative); Urine Protein Negative (Neg-Trace)
[2024-07-12 08:54] LABS: Bacteria Urine None Seen (None Seen); Hyaline Casts Urine 0-2 /LPF (0-2); Squamous Epithelial Cell Urine 0-2 /HPF (0-2); WBC Urine 0-5 /HPF (0-5)
--- NOTE | 2024-07-12 09:07 | ED.GENADULT ---
HPI - General Adult General Chief complaint: Back Pain/Injury Stated complaint: back/side pain, numbness in legs Time Seen by Provider: 07/12/24 09:05 Source: patient and RN notes reviewed Mode of arrival: ambulatory Limitations: no limitations History of Present Illness ED Provider: Richelle Driver PA-C HPI narrative: This is a 63-year-old male, with a history of hyperlipidemia, who presents emergency department with concerns for atraumatic low back pain. Patient reports that the pain started about 10 days or go. He denies any recent trauma, injury, heavy lifting or falls. He states that the pain is constant and intermittently radiates into his bilateral flanks. He states that he has had this pain for many years however over the last 2 weeks his symptoms has worsened. He also states that he has had urinary symptoms, reports that he feels as though his urine stream comes out in different sections. He also reports urinary frequency and urgency. He reports that he intermittently has numbness and tingling down his bilateral legs, states that this is intermittent. He is ambulatory. He denies any saddle anesthesia. No urinary or bowel retention or incontinence. No history of IVDA. He also reports that over the last 2 days he has had cold-like symptoms, reports that he has had congestion, with a productive cough. He denies any current shortness of breath. No chest pain. He denies taking any medications at home to treat his current symptoms. No other complaints or concerns at this time. MD complaint: Back pain Onset (ago): day(s) Relieving factors: none Exacerbating factors: none Associated symptoms: denies other symptoms Treatments prior to arrival: none Related Data Previous Rx's ?Medication ?Instructions ?Recorded omeprazole 40 mg capsule,delayed 40 mg PO QAM 90 days #90 caps 04/17/24 release acetaminophen 500 mg tablet 500 mg PO Q6H PRN pain #30 tabs 07/12/24 (Tylenol Extra Strength) atorvastatin 40 mg tablet 40 mg PO BEDTIME #90 tabs 07/12/24 azithromycin 250 mg tablet 250 mg PO DAILY 4 days #4 tabs 07/12/24 ibuprofen 600 mg tablet 600 mg PO Q6H PRN pain #30 tabs 07/12/24 Allergies Allergy/AdvReac Type Severity Reaction Status Date / Time No Known Allergies Allergy Verified 07/12/24 08:19 Review of Systems Review of Systems: Yes all other systems are reviewed and are negative Constitutional: Constitutional: Reports as per [facility] Past Medical History Medical History Microscopic hematuria Osteoarthritis Family History Family History Father Brain aneurysm Mother No problems noted. Social History Social History Housing: House Patient Tobacco Use Status: Former Tobacco user e-Cigarette/Vaping Use: Never Used Second Hand Smoke Exposure: No Current occupational status: employed Cognitive needs: No Hearing needs: No Vision needs: No Physical Exam ED Vital Signs: Vital Signs - 24 hr 07/12/24 08:13 07/12/24 09:53 07/12/24 12:11 Temperature 98.0 F Pulse Rate 114 H 98 92 Respiratory Rate 20 16 16 Blood Pressure 186/92 H 163/93 H 129/80 Pulse Oximetry 96 98 97 Oxygen Delivery Method Room Air Room Air Room Air 07/12/24 14:00 07/12/24 15:16 Temperature 0 F L Pulse Rate 101 H 101 H Respiratory Rate 16 16 Blood Pressure 153/96 H 153/96 H Pulse Oximetry 97 97 Oxygen Delivery Method Room Air Room Air BMI result Body Mass Index 32.4 Const General: cooperative, comfortable and no acute distress Orientation/consciousness: patient oriented x3 Limitations: no limitations [facility]: Yes normal to inspection, Yes normocephalic and Yes atraumatic Ears: hearing grossly normal bilaterally General nose exam: Normal external nose present Face and sinus: Yes normal facial exam Mouth: Normal oral and palatal mucosa present, oropharynx normal and moist mucous membranes Throat: Yes posterior oropharynx normal Eyes General: appearance normal, both eyes and all related structures Eyelids: Yes eyelids normal Conjunctivae: conjunctivae normal Sclerae: sclerae normal Pupils: Equal, round and reactive pupils present EOM: EOMs intact bilaterally Neck Neck: Yes normal visual inspection, Yes full ROM and Yes no lymphadenopathy Lymphatic: no lymphadenopathy noted Chest Chest palpation & inspection: normal inspection of the chest Resp Effort & Inspection: normal respiratory effort and able to speak in complete sentences Auscultation: clear to auscultation bilaterally, no crackles, no rales, no rhonchi and no wheezes Cardio Rate: regular rate Rhythm: regular rhythm Heart sounds: S1 normal heart sound present and S2 normal heart sound present GI Other: Obese abdomen, tenderness palpation in the bilateral flanks. Abdomen is otherwise soft, nontender. Inspection: Yes normal to inspection Back/Spine/Pelvis Other: Lumbar spine without any bony midline tenderness. He has tenderness palpation along the lumbar paraspinous muscles. No obvious muscle spasm noted. No overlying skin changes or warmth. No rashes. Positive CVA tenderness bilaterally. Patient ambulatory with steady gait. Strength 5/5 in lower extremities. Skin General skin exam: no rashes or lesions noted Trauma: no lacerations or abrasions Wounds: no wounds Neuro General: patient oriented x3 and moves all extremities Cranial nerves: Yes Equal, round and reactive pupils present Extrem General: Yes normal to inspection Right upper extremity: normal to inspection Left upper extremity: normal to inspection Right lower extremity: normal to inspection Left lower extremity: normal to inspection Course Reevaluation(s) Reevaluation #1: Patient feeling better after receiving morphine. It is unclear what is causing his back pain however his exam and workup today is reassuring. X-ray does show evidence of pneumonia, given cough, will treat with azithromycin. Given strict return precautions. I discussed CT scan with radiologist due to possible concern for ?pericardial effusion, he states that this is not a pericardial effusion, and is simply fat around the heart, and nothing to be worried about. I discussed findings with patient. He will follow-up with his PCP in regards to the spondylosis, diverticulosis, renal cysts. Patient started on azithromycin, 1st dose given to the patient in department today. Given strict return precautions. Patient stable for discharge. Time: 14:53 Medications Administered Discontinued Medications Generic Name Dose Route Start Last Admin Trade Name Isacq PRN Reason Stop Dose Admin Azithromycin 500 mg 07/12/24 14:50 07/12/24 15:11 Azithromycin 500 Mg Tablet PO 07/12/24 14:51 500 mg ONCE ONE Administration Ketorolac Tromethamine 30 mg 07/12/24 09:52 07/12/24 10:17 Ketorolac Tromethamine 30 Mg/Ml Vial IVPUSH 07/12/24 09:53 30 mg ONCE ONE Administration Morphine Sulfate 4 mg 07/12/24 13:51 07/12/24 14:10 Morphine Sulfate 4 Mg/Ml Cartridge IVPUSH 07/12/24 13:52 4 mg ONCE ONE Administration Protocol Ondansetron HCl 4 mg 07/12/24 09:52 07/12/24 10:17 Ondansetron Hcl 4 Mg/2 Ml Vial IVPUSH 07/12/24 09:53 4 mg ONCE ONE Administration Medical Decision Making Medical Decision Making [facility] Narrative: This is a 63-year-old male who presents emergency department for evaluation of back pain times 10 days. On arrival, blood pressure 186/92, pulse of 114. Prior to my assessment, these vitals were obtained, urine was performed revealing trace blood, and rbc's. Viral swabs are negative. Chest x-ray revealing slight opacity in the right pulmonary hilum. Repeat vitals revealing blood pressure 163/93, pulse of 98, he is afebrile. Differential diagnoses include nephrolithiasis, obstructive uropathy, sciatica, lumbar radiculopathy. No back pain red flags on history or physical. Presentation not consistent with malignancy (lack of history of malignancy, lack of B symptoms), fracture (no trauma, no bony tenderness to palpation), cauda equina syndrome (no bowel or urinary incontinence/retention, no saddle anesthesia, no distal weakness). Plan: We will obtain CT, blood work, urine, viral swabs Differential Diagnosis Differential Diagnoses: The differential diagnosis associated with the presentation includes See above Admission/Observation Consideration of admission/observation: Escalation of care including admission/observation considered Lab Data [facility] Lab Attestation statement: I reviewed the patient's lab results. No leukocytosis, H&H stable, chemistry with no electrolyte derangement. Troponin less than 2.7 x 2, BNP 81, urine was trace blood, and rbc's, otherwise noninfectious, viral swabs negative. 07/12/24 10:11 07/12/24 10:11 Labs: Lab Results 07/12/24 07/12/24 07/12/24 Range/Units 08:33 10:11 14:03 WBC 7.3 (4.8-10.8) X10*3/uL RBC 4.30 L (4.60-5.80) X10*6/uL Hgb 14.2 (14.0-18.0) g/dl Hct 41.1 L (42.0-52.0) % MCV 95.6 (80.0-98.0) fL MCH 33.0 (27.0-33.0) pg MCHC 34.5 (31.0-36.0) g/dl RDW 12.3 (11.0-16.0) % Plt Count 232 (160-400) X10*3/uL MPV 9.6 (9.4-12.4) fL Immature Gran % (Auto) 0.3 (0.0-0.4) % Neut % (Auto) 79.7 H (45-73) % Lymph % (Auto) 10.6 L (20-40) % [place] % (Auto) 8.2 (2-11) % Eos % (Auto) 0.8 (0-4) % Baso % (Auto) 0.4 (0-2) % Lymph # (Auto) 0.8 L (1.2-4.9) X10*3/uL [place] # (Auto) 0.6 (0.1-1.2) X10*3/uL Eos # (Auto) 0.1 (0.0-0.4) X10*3/uL Baso # (Auto) 0.0 (0.0-0.2) X10*3/uL Abs Immat Gran (auto) 0.02 (0.00-0.03) X10*3/uL Absolute Neuts (auto) 5.8 (2.0-8.3) x10*3/uL Absolute Nucleated RBC 0.000 (0.0-0.012) X10*3/uL Nucleated RBC % (auto) 0.0 (0.0-0.2) /100WBC Sodium 140 (135-145) mmol/L Potassium 4.3 (3.3-5.1) mmol/L Chloride 108 (96-108) mmol/L Carbon Dioxide 23 (22-29) mmol/L Anion Gap 13 (12-20) BUN 13 (9-16) mg/dL Creatinine 1.14 (0.5-1.4) mg/dL Estim Creat Clear Calc 71.9 Estimated GFR > 60 Random Glucose 107 (60-115) mg/dL Calcium 9.0 (8.4-10.2) mg/dL Magnesium 1.9 (1.6-2.6) mg/dL Total Bilirubin 0.5 (0.0-1.0) mg/dL Direct Bilirubin 0.2 (0.0-0.5) mg/dL AST 26 (5-37) U/L ALT 26 (0-40) U/L Alkaline Phosphatase 77 (39-117) U/L Troponin I High Sens < 2.7 < 2.7 (<3.5-35.0) ng/L B-Natriuretic Peptide 81 (<100) pg/mL Total Protein 7.6 (6.5-8.0) g/dL Albumin 4.3 (3.5-5.0) g/dL Lipase 14 (8-78) U/L Urine Color Yellow Urine Appearance Error Urine pH 7.0 (5.0-9.0) Ur Specific [place] 1.020 (1.005-1.025) Urine Protein Negative (Neg-Trace) mg/dL Urine Glucose (UA) Negative (Negative) mg/dL Urine Ketones Negative (Negative) mg/dL Urine Blood Trace H (Negative) Urine Nitrite Negative (Negative) Ur Leukocyte Esterase Negative (Negative) Urine RBC 3-5 H (0-2) /HPF Urine WBC 0-5 (0-5) /HPF Ur Squamous Epith Cells 0-2 (0-2) /HPF Urine Bacteria None Seen (None Seen) Hyaline Casts 0-2 (0-2) /LPF Influenza Type A (PCR) NEGATIVE (Negative) Influenza Type B (PCR) NEGATIVE (Negative) RSV RNA Qual (PCR) NEGATIVE (Negative) SARS-CoV-2 RNA (RT-PCR) NEGATIVE (Negative) Independent Interpretation I performed an independent interpretation of an: EKG Interpretation: EKG sinus tach at 103 beats per minute, TX interval 122, QT QTC 328/429, no ST elevation or depression. Radiology Impression Discussion of test interpretation with radiology: I have reviewed the radiologist's reading. Radiologist Impression: EXAMINATION: CT ABDOMEN AND PELVIS WITHOUT CONTRAST CLINICAL INFORMATION: Bilateral flank pain. COMPARISON: CT dated May 04, 2022. TECHNIQUE: Multidetector volumetric imaging was performed from the superior aspect of the liver through the pubic symphysis. Sagittal and coronal reformatted images were obtained on the technologist's workstation. This CT examination was performed using dose optimization techniques as appropriate, variously including the following: *Automated exposure control *Adjustment of mA and/or kV according to patient size (this includes techniques or standardized protocols for targeted exams where dose is matched to indication/reason for exam; i.e. extremities or head) *Use of iterative reconstruction technique DLP: 645 mGy-cm FINDINGS: Inadequate evaluation of the intra-abdominal organs and vascular structures due to lack of IV contrast. LUNG BASES: No acute airspace disease or gross pulmonary nodules. Subpleural nodules, left lung base. Hiatal hernia, moderate to large size. LIVER, GALLBLADDER, AND BILIARY TREE: Liver measures 14 cm. No pericholecystic fluid collection or gallbladder wall thickening. No intrahepatic or extrahepatic biliary ductal dilatation. PANCREAS: No peripancreatic fluid collection. No main pancreatic ductal dilatation. SPLEEN: 11 cm. ADRENAL GLANDS: Soft tissue fullness without gross nodular lesion. KIDNEYS AND URETERS: No hydronephrosis. No nephrolithiasis. Fluid density lesions in the parapelvic right kidney. 7 mm exophytic low density measuring fluid density in the upper pole left kidney. Fluid density at the parapelvic left kidney. Focal fluid density in the lower pole left kidney no fully evaluated. BLADDER: Fluid-filled. There is a 2 cm fluid density in the posterior right lateral wall. GASTROINTESTINAL TRACT: Abundant stool. Numerous diverticula mostly in the left hemicolon. No pericolonic edema pattern. No pneumatosis intestinalis. No pneumoperitoneum. No ascites. No fluid collections, peritoneal cavity. Appendix is normal. ABDOMINAL WALL: Small fat-containing periumbilical hernia. LYMPH NODES: Nonspecific mildly prominent mesenteric lymph nodes. VASCULAR: No aneurysm, abdominal aorta. Mixed plaques throughout the infrarenal distal abdominal aorta and iliac arteries. PELVIC VISCERA: Prostate gland is not enlarged. Mild prominent seminal vesicles, nonspecific. OSSEOUS STRUCTURES: No acute fracture or gross listhesis in the axial skeleton. Multilevel thoracolumbar spondylosis. Bony pelvis and coxofemoral joints are intact. Probable bony island's in the pelvis. CT/CT abdomen pelvis wo IV con IMPRESSION: No hydronephrosis or nephrolithiasis. Bilateral renal cysts. Diverticular disease, left hemicolon. Atherosclerosis disease. Hiatal hernia, moderate to large size. Fleischner guidelines were followed. Electronically signed by: Hao Prince MD 07/12/2024 01:16 PM [facility] Dictated By: Hao Willams MD XR/XR chest 2V IMPRESSION: Concerning acute airspace disease, right lung. Electronically signed by: Hao Prince MD 07/12/2024 08:53 AM EST Dictated By: Hao Willams MD Discharge Plan Discharge Clinical Impression: Back pain, Pneumonia, Spondylosis, Abnormal CT scan Patient Disposition: Home, Self-Care Instructions: Acute Low Back Pain (ED), Back Pain (ED), Pneumonia (ED) Additional Instructions: You were seen in the emergency department due to back pain. Your chest x-ray has concerns for pneumonia. Please take prescribed antibiotic as directed. Finish the entire course even if your symptoms improve. Your CT scan of your abdomen shows multiple findings including bilateral renal cyst, diverticular disease, atherosclerosis, and a hiatal hernia. These are unrelated to your back pain however needs to be followed up and managed through your primary care physician. Continue taking ibuprofen and or Tylenol as needed for pain. Lidoderm patches can also help with pain. Still stretching, heat or ice, and massage can also help with back pain. Watch for any new or worsening symptoms including but not limited to worsening pain, fevers, chest pain, shortness of breath. If any of these occur, please seek emergent care. Prescriptions: New azithromycin 250 mg tablet 250 mg PO DAILY 4 Days Qty: 4 0RF ibuprofen 600 mg tablet 600 mg PO Q6H PRN (Reason: pain) Qty: 30 0RF acetaminophen [Tylenol Extra Strength] 500 mg tablet 500 mg PO Q6H PRN (Reason: pain) Qty: 30 0RF No Action omeprazole 40 mg capsule,delayed release(DR/EC) 40 mg PO QAM 90 Days Qty: 90 1RF atorvastatin 40 mg tablet 40 mg PO BEDTIME Qty: 90 1RF Stand Alone Forms: Work/School Release Interventions: ED Discharge Assessment Last Done: 07/12/24 15:16 Discharge Date/Time: 07/12/24 15:17 Print Language: Slovak
--- NOTE | 2024-07-12 09:19 | ECG_ITS ---
Test Reason : cp Blood Pressure : / mmHG Vent. Rate : 103 BPM Atrial Rate : 103 BPM P-R Int : 122 ms QRS Dur : 082 ms QT Int : 328 ms P-R-T Axes : 051 054 014 degrees QTc Int : 429 ms Sinus tachycardia Otherwise normal ECG No previous ECGs available Referred By: Richelle Driver Electronically Signed By:Solitario Matthews
[2024-07-12 09:44] LABS: Influenza A PCR NEGATIVE (Negative); Influenza B PCR NEGATIVE (Negative); Resp Syncy Virus RNA Qual PCR NEGATIVE (Negative); SARS COV2 PCR INHOUSE NEGATIVE (Negative)
[2024-07-12 09:53] VITALS: BP 163/93; PULSE 98; RESP 16; O2SAT 98
[2024-07-12 10:15] LABS: MANUAL DIFF FLAG NO
[2024-07-12 10:17] LABS: Basophils Percent Auto 0.4 % (0-2); Eosinophils Absolute Auto 0.1 X10*3/uL (0.0-0.4); Eosinophils Percent Auto 0.8 % (0-4); Hematocrit 41.1 % (42.0-52.0); Hemoglobin 14.2 g/dl (14.0-18.0); Imm Gran Abs Auto 0.02 X10*3/uL (0.00-0.03); Imm Gran Pct Auto 0.3 % (0.0-0.4); Lymphocytes Absolute Auto 0.8 X10*3/uL (1.2-4.9); Lymphocytes Percent Auto 10.6 % (20-40); Mean Corpuscular HGB Conc 34.5 g/dl (31.0-36.0); Mean Corpuscular Volume 95.6 fL (80.0-98.0); Mean Platelet Volume 9.6 fL (9.4-12.4); Monocytes Absolute Auto 0.6 X10*3/uL (0.1-1.2); Monocytes Percent Auto 8.2 % (2-11); Neutrophils Absolute Auto 5.8 x10*3/uL (2.0-8.3); Neutrophils Percent Auto 79.7 % (45-73); Platelet Count 232 X10*3/uL (160-400); Red Cell Distribution Width 12.3 % (11.0-16.0); White Blood Count 7.3 X10*3/uL (4.8-10.8)
[2024-07-12] MEDS: Ketorolac Tromethamine 30 MG/ML VIAL IVPUSH (10:17)
[2024-07-12] MEDS: ondansetron HCL 4 MG/2 ML VIAL IVPUSH (10:17)
--- NOTE | 2024-07-12 10:23 | PC.NURSE ---
IV established, labs obtained and sent. medicated per the MAR for 05/[address] awaiting results of CT scan
[2024-07-12 10:36] LABS: Alanine Aminotransferase 26 U/L (0-40); Albumin Level 4.3 g/dL (3.5-5.0); Alkaline Phosphatase 77 U/L (39-117); Anion Gap 13 (12-20); Aspartate Amino Transferase 26 U/L (5-37); Bilirubin Direct 0.2 mg/dL (0.0-0.5); Bilirubin Total 0.5 mg/dL (0.0-1.0); Blood Urea Nitrogen 13 mg/dL (9-16); Carbon Dioxide 23 mmol/L (22-29); Chloride 108 mmol/L (96-108); Creatinine Clr Calc Pharmacy 71.9; Estimated Glomerular Filt Rate > 60; Glucose Random 107 mg/dL (60-115); Lipase 14 U/L (8-78); Magnesium 1.9 mg/dL (1.6-2.6); Potassium 4.3 mmol/L (3.3-5.1); Sodium 140 mmol/L (135-145); Total Protein 7.6 g/dL (6.5-8.0)
[2024-07-12 10:41] LABS: B Type Natriuretic Peptide 81 pg/mL (<100)
[2024-07-12 10:45] LABS: Troponin-I High Sensitivity < 2.7 ng/L (<3.5-35.0)
[2024-07-12 12:11] VITALS: BP 129/80; PULSE 92; RESP 16; O2SAT 97
[2024-07-12 14:00] VITALS: BP 153/96; PULSE 101; RESP 16; O2SAT 97
[2024-07-12] MEDS: Morphine Sulfate 4 MG/ML CARTRIDGE IVPUSH (14:10)
[2024-07-12 14:41] LABS: Troponin-I High Sensitivity < 2.7 ng/L (<3.5-35.0)
[2024-07-12] MEDS: Azithromycin 500 MG TABLET PO (15:11)
[2024-07-12 15:16] VITALS: BP 153/96; PULSE 101; RESP 16; TEMP -17.7; TEMP 0; O2SAT 97
== END 2024-07-12 15:17 | disposition home or self-care (01) ==
PROVIDERS: Physician Assistant Medical; Emergency Provider Emergency Medicine; PCP Nurse Practitioner Family
DX: M54.50 Low back pain, unspecified (principal); J18.9 Pneumonia, unspecified organism; M47.816 Spondylosis without myelopathy or radiculopathy, lumbar region; R93.5 Abnormal findings on diagnostic imaging of other abdominal regions, including retroperitoneum; Z03.818 Encounter for observation for suspected exposure to other biological agents ruled out; R05.9 Cough, unspecified
CPT/HCPCS: 0241U; 36415; 71046; 74176; 80048; 80076; 81001; 83690; 83735; 83880; 84484; 85025; 93005; 96374; 96375; 99284; 99285; J1885; J2270; J2405

== ENCOUNTER → 2024-07-12 08:22 | Outpatient (BNV) | payer OTHER, SELFPAY | PROVIDERS: PCP Nurse Practitioner Family; Visit Provider Radiology Diagnostic Radiology | DX: N28.1 Cyst of kidney, acquired (principal); K44.9 Diaphragmatic hernia without obstruction or gangrene; K57.30 Diverticulosis of large intestine without perforation or abscess without bleeding; J98.4 Other disorders of lung | CPT/HCPCS: 71046; 74176 ==

== ENCOUNTER → 2024-07-12 09:19 | Outpatient (BNV) | payer OTHER, SELFPAY | PROVIDERS: Emergency Provider Emergency Medicine; PCP Nurse Practitioner Family; Visit Provider Internal Medicine Cardiovascular Disease | DX: R07.9 Chest pain, unspecified (principal) | CPT/HCPCS: 93010 ==

== ENCOUNTER 2024-07-31 14:24 | Outpatient (REF) | payer OTHER, SELFPAY ==
[2024-07-31 16:12] LABS: MANUAL DIFF FLAG NO
[2024-07-31 16:22] LABS: Basophils Absolute Auto 0.1 X10*3/uL (0.0-0.2); Basophils Percent Auto 0.8 % (0-2); Eosinophils Absolute Auto 0.2 X10*3/uL (0.0-0.4); Eosinophils Percent Auto 2.5 % (0-4); Hematocrit 38.9 % (42.0-52.0); Hemoglobin 13.4 g/dl (14.0-18.0); Imm Gran Abs Auto 0.02 X10*3/uL (0.00-0.03); Imm Gran Pct Auto 0.3 % (0.0-0.4); Lymphocytes Percent Auto 29.9 % (20-40); Mean Corpuscular HGB Conc 34.4 g/dl (31.0-36.0); Mean Corpuscular Hemoglobin 32.4 pg (27.0-33.0); Mean Platelet Volume 10.8 fL (9.4-12.4); Monocytes Absolute Auto 0.4 X10*3/uL (0.1-1.2); Monocytes Percent Auto 6.6 % (2-11); Neutrophils Absolute Auto 3.9 x10*3/uL (2.0-8.3); Neutrophils Percent Auto 59.9 % (45-73); Platelet Count 292 X10*3/uL (160-400); Red Blood Count 4.14 X10*6/uL (4.60-5.80); Red Cell Distribution Width 12.2 % (11.0-16.0); White Blood Count 6.5 X10*3/uL (4.8-10.8)
[2024-07-31 18:03] LABS: Albumin Level 4.3 g/dL (3.5-5.0); Anion Gap 13 (12-20); Aspartate Amino Transferase 24 U/L (5-37); Bilirubin Total 0.4 mg/dL (0.0-1.0); Blood Urea Nitrogen 11 mg/dL (9-16); Calcium 8.7 mg/dL (8.4-10.2); Carbon Dioxide 26 mmol/L (22-29); Chloride 105 mmol/L (96-108); Estimated Glomerular Filt Rate > 60; Glucose Random 125 mg/dL (60-115); Iron 134 mcg/dL (45-160); Percent Iron Saturation 37 % (15-50); Potassium 3.6 mmol/L (3.3-5.1); Sodium 140 mmol/L (135-145); Total Iron Binding Capacity 366 mcg/dL (228-428); Total Protein 7.1 g/dL (6.5-8.0); Unsaturated Iron Binding 232 ug/dL
[2024-07-31 19:09] LABS: Alanine Aminotransferase 30 U/L (0-40); Alkaline Phosphatase 91 U/L (39-117)
[2024-07-31 20:02] LABS: Ferritin 56 ng/mL (20-250); TSH reflex Free T4 6.25 uIU/mL (0.32-4.0)
[2024-08-01 00:31] LABS: Free T4 (Free Thyroxine) 0.89 ng/dL (0.71-1.85)
[2024-08-02 03:29] LABS: Thyroid Peroxidase Antibodies 1 IU/mL (<9)
== END 2024-07-31 14:25 | disposition home or self-care (01) ==
LOC: HO.HMGCX 14:24
PROVIDERS: PCP Nurse Practitioner Family; Visit Provider Nurse Practitioner Family
DX: E83.19 Other disorders of iron metabolism (principal); R79.89 Other specified abnormal findings of blood chemistry
CPT/HCPCS: 36415; 80053; 82728; 83540; 84439; 84443; 85025; 86376

== ENCOUNTER 2024-08-28 11:46 | Outpatient (AMB) | payer OTHER, SELFPAY ==
[2024-08-28 11:54] VITALS: BP 155/89; PULSE 88; TEMP 35.8; O2SAT 97; BMI 31.2
--- NOTE | 2024-08-28 11:54 | A.OFFVIS_ITS ---
VS Expanded 08/28/24 11:54 BP 155/89 H Blood Pressure Location Rt brachial Blood Pressure Position Sitting Pulse 88 Pulse Source Pulse Oximeter Temp 96.4 F L Pulse Oximetry 97 Oxygen Delivery Method Room Air Height 5 ft 6 in Weight 193 lb 3.2 oz BMI 31.2 Body Fat % 32 Body Fat Mass 61.8 Fat Free Mass 131.4 Visceral Fat Rating 17 Body Water % 46.1 Body Water Mass 89 Muscle Mass/Score 124.8 Basal Metabolic Rate/Score 1,754 Intake Visit Reasons: OV Hiatal Hernia - Dr. Gonzales Ref. *SEE COMM* Allergies No Known Allergies Allergy (Verified 08/28/24 13:15) Medication List - Last Reconciled 08/28/24 by Hua Manning, RN acetaminophen (Tylenol Extra Strength) 500 mg PO Q6H PRN atorvastatin 40 mg PO BEDTIME omeprazole 40 mg PO QAM 90 days HPI Comments Details: Was referred by his PCP Dr. Nichols. Complains of persistent GERD despite continuous use of Omperazole. In addition, he has been experiencing very frequently episodes of regurgitation and choking during his sleep which wakes him up. His is witnessing these and she described them very scary . In addition, he has noticed that his capacity of exercising has reduced getting out of breath very easily and much easier than before. [facility] Medical History Microscopic hematuria Osteoarthritis Family History Father Brain aneurysm Mother No problems noted. Social History Housing: House Patient Tobacco Use Status: Former Tobacco user e-Cigarette/Vaping Use: Never Used Second Hand Smoke Exposure: No Current occupational status: employed Cognitive needs: No Hearing needs: No Vision needs: No Physical Exam Vital Signs: Last Vital Signs Temp 96.4 F L 08/28/24 11:54 Pulse 88 08/28/24 11:54 BP 155/89 H 08/28/24 11:54 Pulse Ox 97 08/28/24 11:54 Oxygen Delivery Method Room Air 08/28/24 11:54 BMI result Body Mass Index 31.2 GI Inspection: Yes normal to inspection (very android) and Yes obesity Palpation (GI): Soft to palpation Extrem Right lower extremity: normal to inspection Left lower extremity: normal to inspection Assessment & Plan Assessment & Plan (1) Large hiatal hernia: Code(s): K44.9 - Diaphragmatic hernia without obstruction or gangrene Category: Medical Plan: 1. We discussed the potential etiology of the hernia worsened by his weight. We discussed the details of the diaphragmatic hernia repair and the potential tech nical challenges such as being able to achieve enough mobilization of the esophagus back in the abdomen and being able to close the diaphragmatic muscle (crura) primarily with sutures. We also discussed the possibility of using a biologic mesh to close the hernia defect if the crura cannot be adequately re- approximated primarily with sutures. We also discussed the option of doing a gastropexy or a fundoplication to prevent postoperative reflux and prevent hernia recurrence. As we discussed, I favor the gastropexy as the fundoplication can cause several distrurbing symptoms such as gas-bloating, flatulence, inability to burp which can be bothersome. Also we discussed the complexity of a potential hernia recurrence in association with a hernia recurrence. He was in agreement not to have a fundoplication. We also discussed that after surgery, he will need to be on a liquid diet with protein shakes the first week. The second week will add protein bars and soft foods and after the third week we will introduce small amounts of regular food. The transition to normal eating habits will take about 6 weeks which is the time required for the repair to heal completely. 2. Due to his weight and comorbidities, he would benefit from a combined approach addressing the diaphragmatic hernia and his weight concomitantly. Addressing the weight issue, will improve his intra-abdominal pressure and reduce the risk of postoperative residual reflux or hernia recurrence. He was in agreement to proceed with both procedures concomitantly. 3.?Nutritional counseling. Start with one CELEBRATE REBUILD protein (buy at hospital's gift shop) shakes (HALF scoop in 8oz low fat unsweetened almond milk or water, ot oatmilk, or coconut milk) at 6am-8am, 2 protein bars (CELEBRATE protein bars, buy at hospital's [employer] [facility]) at 9am-11am and 12pm-2pm, dinner at 3pm-4pm (8 forks of protein and 8 forks of salad/vegetables) AND one more CELEBRATE REBUILD protein shake (HALF scoop in 8oz low fat unsweetened almond milk or water, ot oatmilk, or coconut milk) after dinner at 5pm-7pm. So you do 2 protein shakes, 2 protein bars and one meal per day. Meal to include lean meat (beef, fish, pork, turkey, chicken), or yemeni yogurt, or egg whites, or beans with a salad with olive oil and fruits (berries, pears, apples, kiwi). Avoid salt, breads, potatoes, rice, pasta, desserts. 3. Each shake would be drunk slowly, like coffee in a period of 2 hours. 4. Cut each bar in 4 pieces and eat each piece in 30min ?to make each bar last 2 hours. 5. I emphasized the importance of measuring accurately the food portion and measure it when serving the food in plate 6. The meal portions include 8 full-size forks of meat and 8 full-size forks of salad. You always eat the meat portion but you can replace up to 4 forks for salad/vegetables with rice, potatoes or pasta, or a fruit ?if you like. The less you do it the better weight loss will be. 7. One full-size fork is what it can be scooped on the fork without falling aside and not what can be bit with the fork. Use regular forks like those you find in a typical restaurant. 8.? Please buy the body composition scale we discussed and send me weight measurements as soon as possible and then once a week. Always include your diet and exercise plan. 9. Start treadmill with an incline of 2.0 and speed of 3.0. Increase incline by 1 every 3 min to a max incline of 8.0, stay 3min at 8.0 and then return to 2.0 and repeat same steps until calorie goal is met. Goal is to burn 2000 calories per week on exercise, which means either 300 calories daily. You can split this and do 150 calories in the morning and 150 calories in the afternoon. 10. Goal is to lose at least 1.5-2lbs per week 11. Goal to lose 10% of your weight before surgery, which is about 26lbs. Ultimate weight goal: 240lbs before surgery 12. Please follow the diet plan exactly without any change. If you don't like something about the plan or you feel hungry you need to communicate with me so I can help you revise the plan. You should not change the plan yourself 13. To be scheduled for EGD due to the history of large diaphragmatic hernia and GERD. The possibility of biopsies was discussed. Patient needs to avoid use of NSAIDs and aspirin for 1 week prior to EGD. You must be on liquids only the day before your endoscopy. Risks of perforation and bleeding was discussed with the patient. This will be an outpatient procedure with IV sedation. Orders: Orders Insulin Today Z01.818 - Encounter for other preprocedural examination H Pylori Breath Test Today Z01.818 - Encounter for other preprocedural examination Complete Blood Count Auto Diff Today Z01.818 - Encounter for other preprocedural examination Lipid Panel Today Z01.818 - Encounter for other preprocedural examination IRON PROFILE Today Z01.818 - Encounter for other preprocedural examination Comprehensive Met. Panel Today Z01.818 - Encounter for other preprocedural examination Zinc Today Z01.818 - Encounter for other preprocedural examination C Reactive Protein Today Z01.818 - Encounter for other preprocedural examination Vitamin A Today Z01.818 - Encounter for other preprocedural examination TSH reflex Free T4 Today Z01.818 - Encounter for other preprocedural examination Ferritin Today Z01.818 - Encounter for other preprocedural examination US abdomen comp w elastography Today Z01.818 - Encounter for other preprocedural examination CA echo transthorac w con Today Z01.818 - Encounter for other preprocedural examination Hemoglobin A1c Today Z01.818 - Encounter for other preprocedural examination Vitamin B12 and Folate Today Z01.818 - Encounter for other preprocedural examination Vitamin B1 Today Z01.818 - Encounter for other preprocedural examination Vitamin D 25-OH Total Today Z01.818 - Encounter for other preprocedural exam ination XR chest 2V Today Z01.818 - Encounter for other preprocedural examination ECG 12 lead EKG Today Z01.818 - Encounter for other preprocedural examination RT home sleep study Today Z01.818 - Encounter for other preprocedural examination PFT pulmonary function test Today Z01.818 - Encounter for other preprocedural examination CA stress test Today Z01.818 - Encounter for other preprocedural examination
== END 2024-08-28 16:27 | disposition home or self-care (01) ==
LOC: HO.HBS 11:46
PROVIDERS: PCP Nurse Practitioner Family; Visit Provider Surgery
DX: K44.9 Diaphragmatic hernia without obstruction or gangrene (principal)
CPT/HCPCS: 99204

== ENCOUNTER 2024-09-05 13:54 | Outpatient (REF) | payer OTHER, SELFPAY ==
--- NOTE | ~2024-09-05 | XR_ITS ---
EXAMINATION: XR CHEST CLINICAL INFORMATION: Z01.818 - Encounter for other preprocedural examination COMPARISON: None available. TECHNIQUE: 2 views of the chest were obtained. FINDINGS: No significant abnormality is noted involving the heart, lungs, mediastinum, bony thorax or soft tissues. XR/XR chest 2V IMPRESSION: Unremarkable chest examination. Electronically signed by: Mitch Kay MD 09/06/2024 07:[address] [facility]
[2024-09-05 16:24] LABS: MANUAL DIFF FLAG NO
[2024-09-05 16:29] LABS: Basophils Absolute Auto 0.1 X10*3/uL (0.0-0.2); Basophils Percent Auto 0.9 % (0-2); Eosinophils Absolute Auto 0.1 X10*3/uL (0.0-0.4); Eosinophils Percent Auto 1.5 % (0-4); Hematocrit 42.3 % (42.0-52.0); Hemoglobin 14.2 g/dl (14.0-18.0); Imm Gran Abs Auto 0.02 X10*3/uL (0.00-0.03); Imm Gran Pct Auto 0.4 % (0.0-0.4); Lymphocytes Absolute Auto 1.4 X10*3/uL (1.2-4.9); Lymphocytes Percent Auto 26.5 % (20-40); Mean Corpuscular HGB Conc 33.6 g/dl (31.0-36.0); Mean Corpuscular Hemoglobin 32.6 pg (27.0-33.0); Mean Corpuscular Volume 97.2 fL (80.0-98.0); Mean Platelet Volume 10.7 fL (9.4-12.4); Monocytes Absolute Auto 0.6 X10*3/uL (0.1-1.2); Monocytes Percent Auto 10.9 % (2-11); Neutrophils Absolute Auto 3.2 x10*3/uL (2.0-8.3); Neutrophils Percent Auto 59.8 % (45-73); Platelet Count 261 X10*3/uL (160-400); Red Blood Count 4.35 X10*6/uL (4.60-5.80); Red Cell Distribution Width 12.6 % (11.0-16.0); White Blood Count 5.3 X10*3/uL (4.8-10.8)
[2024-09-05 16:40] LABS: Estimated Average Glucose 103 mg/dL; Hemoglobin A1C 126.2836 umol/L; Hemoglobin A1c % 5.2 % (<6.0); Total Hemoglobin (HGBA1C) 3774.6647 umol/L
[2024-09-05 17:01] LABS: Alanine Aminotransferase 35 U/L (0-40); Albumin Level 4.6 g/dL (3.5-5.0); Alkaline Phosphatase 79 U/L (39-117); Anion Gap 11 (12-20); Aspartate Amino Transferase 29 U/L (5-37); Bilirubin Total 0.5 mg/dL (0.0-1.0); Blood Urea Nitrogen 12 mg/dL (9-16); C Reactive Protein 0.12 mg/dL (< or = 0.50); Calcium 9.4 mg/dL (8.4-10.2); Carbon Dioxide 28 mmol/L (22-29); Chloride 105 mmol/L (96-108); Cholesterol 131 mg/dL (<200); Estimated Glomerular Filt Rate > 60; Glucose Random 92 mg/dL (60-115); HDL Cholesterol 45 mg/dL (>40); Iron 102 mcg/dL (45-160); LDL Cholesterol Calculated 73 mg/dL (<100); Percent Iron Saturation 25 % (15-50); Potassium 4.3 mmol/L (3.3-5.1); Sodium 140 mmol/L (135-145); Total Iron Binding Capacity 410 mcg/dL (228-428); Total Protein 7.9 g/dL (6.5-8.0); Triglycerides 68 mg/dL (<150); Unsaturated Iron Binding 308 ug/dL
[2024-09-05 17:15] LABS: Folate 13.1 ng/mL (> or = 4.0); Vitamin B12 427 pg/mL (200-900)
[2024-09-05 17:24] LABS: Ferritin 43 ng/mL (20-250); TSH reflex Free T4 3.57 uIU/mL (0.32-4.0); Vitamin D 25-OH Total 24.9 ng/mL (>30)
[2024-09-05 18:20] LABS: Insulin 7 uU/mL (2-29)
[2024-09-08 00:48] LABS: Zinc 72 mcg/dL (60-130)
[2024-09-08 19:09] LABS: Vitamin A 46 mcg/dL (38-98)
[2024-09-12 15:09] LABS: Vitamin B1 8 nmol/L (8-30)
== END 2024-09-05 13:55 | disposition home or self-care (01) ==
LOC: HO.HMGCX 13:54
PROVIDERS: PCP Nurse Practitioner Family; Visit Provider Surgery
DX: Z01.818 Encounter for other preprocedural examination (principal); Z13.1 Encounter for screening for diabetes mellitus
CPT/HCPCS: 36415; 71046; 80053; 80061; 82306; 82607; 82728; 82746; 83036; 83525; 83540; 84425; 84443; 84590; 84630; 85025; 86140

== ENCOUNTER → 2024-09-05 13:59 | Outpatient (BNV) | payer OTHER, SELFPAY | PROVIDERS: PCP Nurse Practitioner Family; Visit Provider Radiology Diagnostic Radiology | DX: Z01.818 Encounter for other preprocedural examination (principal) | CPT/HCPCS: 71046 ==

== ENCOUNTER 2024-09-06 15:03 | Outpatient (AMB) | payer OTHER, SELFPAY ==
--- NOTE | 2024-09-06 15:11 | A.OFFVIS_ITS ---
Intake Visit Reasons: [facility] Follow up-Bilateral renal cysts/Frequency Intake Note: Patient presents today for [facility] follow up on renal cyst Urology Med: none Antibiotic Allergies: None Blood thinners: none Renewable Energy Trader Required: No Accompanied by: Spouse Allergies No Known Allergies Allergy (Verified 09/06/24 15:23) HPI Comments Details: Kael is a pleasant male. He is a patient of Dr. Trejo. He is seen for the following urologic conditions - microscopic hematuria Last seen 10/01 Prior normal cystoscopy Seen at emergency room last month Reports urgency frequency with weakness of stream No medications Patient states no problems. Had pneumonia and rib pain. CT just showed small cysts that we knew about. Could check in 5 years. Microscopic hematuria Microscopic hematuria was diagnosed during - persistent during primary care visits They are here for the - cystoscopy and discussion of imaging finding Since the last visit the patient has - continues to is positive for microscopic hematuria Relevant medical history - anticoagulation therapy - no - kidney stones no - prostatitis no Prior tobacco use - yes 20 year pack year history Workplace exposures - no Associated symptoms at initial evaluation include dysuria yes frequency S Radiographic imaging: - CT scan small bilateral cysts Other investigations - cytology, completed normal Cystoscopy findings 10/01 - phlegm trying on. [facility] Medical History Microscopic hematuria Osteoarthritis Family History Father Brain aneurysm Mother No problems noted. Social History Housing: House Patient Tobacco Use Status: Former Tobacco user e-Cigarette/Vaping Use: Never Used Second Hand Smoke Exposure: No Current occupational status: employed Cognitive needs: No Hearing needs: No Vision needs: No Review of Systems Const Denies chills and Denies fever(s) Card Reports no additional complaints and Denies syncope Resp Denies cough GI Denies abdominal pain and Denies heartburn Reports as per HPI and Denies change in libido Neuro Denies syncope Psych Denies change in libido Endo Denies change in libido Physical Exam Const General: cooperative, healthy appearing, comfortable and no acute distress Orientation/consciousness: patient oriented x3 HEENT Face and sinus: Yes normal facial exam Mouth: moist mucous membranes Neck Neck: Yes normal visual inspection, Yes full ROM and Yes trachea midline Chest Chest palpation & inspection: normal inspection of the chest Resp Effort & Inspection: normal respiratory effort, able to speak in complete sentences and no respiratory distress GI Inspection: Yes normal to inspection Back/Spine/Pelvis Cervical Spine: normal cervical lordosis Thoracic/Lumbar Spine: thoracic and lumbar spine normal to inspection Skin General skin exam: no rashes or lesions noted Neuro General: patient oriented x3, gait normal, tone normal and moves all extremities Extrem General: Yes normal to inspection and Yes capillary refill normal Assessment & Plan Assessment & Plan (1) Renal cysts, acquired, bilateral: Code(s): N28.1 - Cyst of kidney, acquired Category: Medical Plan P.r.n. follow-up Patient Instructions: Imaging studies, laboratory and physical exam results were discussed and reviewed in detail. No major barriers to patient understanding were identified. An opportunity to ask questions regarding the treatment plan was provided. All questions were answered. The patient expressed understanding and agreement with the above treatment plan. The patient is aware they should contact our office by phone for worsening of their current condition or the appearance of new urologic symptoms. Compliance is encouraged with any medications and followup testing that is ordered. It is a privilege to participate in the urologic care of your patient. If you have any questions or concerns regarding treatment for the above conditions, or other urologic issues, please do not hesitate to contact me. The office telephone contact is [phone]. This note is constructed using voice recognition software. While every effort has been made to ensure accuracy radio survey worker errors may have been included. Yours sincerely, Dr Scar Shelley MD, [facility] - Urology Providers of Expert, Compassionate Care for the Genitourinary System Coding Level of Care Code Est Pt Level 4 (14660) Diagnoses Renal cysts, acquired, bilateral N28.1
== END 2024-09-06 15:25 | disposition home or self-care (01) ==
PROVIDERS: PCP Nurse Practitioner Family; Visit Provider Urology
DX: N28.1 Cyst of kidney, acquired (principal)
CPT/HCPCS: 99214

== ENCOUNTER → 2024-09-11 14:47 | Outpatient (BNV) | payer OTHER, SELFPAY | PROVIDERS: PCP Nurse Practitioner Family; Visit Provider Radiology Diagnostic Radiology | DX: K76.0 Fatty (change of) liver, not elsewhere classified (principal); N28.1 Cyst of kidney, acquired | CPT/HCPCS: 76700; 76981 ==

== ENCOUNTER → 2024-09-13 14:46 | Outpatient (BNV) | payer OTHER, SELFPAY | PROVIDERS: PCP Nurse Practitioner Family; Visit Provider Internal Medicine Cardiovascular Disease | DX: I51.89 Other ill-defined heart diseases (principal); Z01.818 Encounter for other preprocedural examination | CPT/HCPCS: 93306 ==

== ENCOUNTER → 2024-09-22 08:16 | Outpatient (REF) | payer OTHER, SELFPAY ==
--- NOTE | 2024-09-22 08:19 | CA_ITS ---
Acquisition Time: 2024-09-22 08:49:14 Total Exercise Time: 00:05:00 Test Indications: ENCOUNTER FOR PRE OP, SOB Medications: SEE MED SHEET Protocol: DEBRA Max HR: 157 BPM 99% of Pred: 158 BPM Max BP: 144/78 mmHG Max Work Load: 7.0 METS Exercise Stress Test with exercise 5 mins of Debra Protocol, achieving 99% MPHR, with reports of mild SOB that resolved quickly in recovery, no chest discomfort, without any arrythmias, with normotensive response to exercise. With J point depression ST upsloping during exercise adn borderline EKG chnages in recovery, continued to be free of symptoms. Recommed further testing with nuclear images if needed. Test reviewed with Dr. Ashley. Referred By: Abdoulaye Beckford Electronically Signed By: Meng Coronel
== END ==
LOC: HO.CARD 08:16
PROVIDERS: PCP Nurse Practitioner Family; Visit Provider Surgery
DX: Z01.818 Encounter for other preprocedural examination (principal)
CPT/HCPCS: 93017

== ENCOUNTER → 2024-09-22 08:19 | Outpatient (BNV) | payer OTHER, SELFPAY | PROVIDERS: PCP Nurse Practitioner Family | DX: R06.02 Shortness of breath (principal) | CPT/HCPCS: 93016; 93018 ==

== ENCOUNTER 2024-10-03 14:32 | Outpatient (REF) | payer OTHER, SELFPAY ==
--- NOTE | 2024-10-03 14:41 | PFT_ITS ---
Flows: FEV1: 104 % of predicted at 3.33 L FVC: 115 % of predicted at 4.71 L FEV1/FVC: 71 % Bronchodilator response: Present in small to medium airways only Volumes: Total lung capacity: 100 % of predicted at 6.51 L Residual volume: 96 % of predicted at 1.98 L Slow vital capacity: 100 % of predicted at 4.52 L Expiratory reserve volume: 45 % of predicted at 0.50 L Diffusion capacity: Normal Impression: Borderline obstructive ventilatory defect with bronchodilator response present in small to medium airways only. Decreased expiratory reserve volume suggests extrathoracic restriction likely secondary to abdominal obesity. MTDD
== END 2024-10-03 14:33 | disposition home or self-care (01) ==
LOC: HO.RESP 14:32
PROVIDERS: PCP Nurse Practitioner Family; Visit Provider Surgery
DX: Z01.818 Encounter for other preprocedural examination (principal)
CPT/HCPCS: 94010; 94640; 94727; 94729

== ENCOUNTER → 2024-10-03 14:41 | Outpatient (BNV) | payer OTHER, SELFPAY | PROVIDERS: PCP Nurse Practitioner Family; Visit Provider Internal Medicine Pulmonary Disease | DX: F17.210 Nicotine dependence, cigarettes, uncomplicated (principal); Z01.811 Encounter for preprocedural respiratory examination | CPT/HCPCS: 94060 ==

== ENCOUNTER → 2024-10-10 13:57 | Outpatient (REF) | payer OTHER, SELFPAY | LOC: HO.SL 13:57 | PROVIDERS: PCP Nurse Practitioner Family; Visit Provider Surgery | DX: Z01.818 Encounter for other preprocedural examination (principal); R06.83 Snoring | CPT/HCPCS: 95806 ==

== ENCOUNTER → 2024-10-10 14:10 | Outpatient (BNV) | payer OTHER, SELFPAY | PROVIDERS: PCP Nurse Practitioner Family; Visit Provider Internal Medicine | DX: R06.83 Snoring (principal) | CPT/HCPCS: 95806 ==

== ENCOUNTER → 2024-10-27 10:48 | Outpatient (REF) | payer OTHER, SELFPAY ==
--- NOTE | 2024-10-27 10:51 | CA_ITS ---
Acquisition Time: 2024-10-27 11:12:28 Total Exercise Time: 00:06:18 Test Indications: abn.stress test Medications: Protocol: DEBRA Max HR: 171 BPM 108% of Pred: 158 BPM Max BP: 154/82 mmHG Max Work Load: 7.4 METS Exercise Stress Test with exercise 6 mins 18 secs of Debra Protocol, achieving 101% MPHR, with reports of mild SOB, no chest pain, without any arrythmias, with normotensive response to exercise. With mostly upsloping ST during exercise and borderline EKG changes in recovery. In recovery, breathing returned to baseline. Echo images obtained by tech at baseline and post peak exercise. Definity contrast utilized. Test reviewed with Dr. Matthews. Referred By: Abdoulaye Beckford Electronically Signed By: Meng Coronel
== END ==
LOC: HO.CARD 10:48
PROVIDERS: PCP Nurse Practitioner Family; Visit Provider Surgery
DX: R94.39 Abnormal result of other cardiovascular function study (principal)
CPT/HCPCS: 93350; Q9957

== ENCOUNTER → 2024-10-27 10:51 | Outpatient (BNV) | payer OTHER, SELFPAY | PROVIDERS: PCP Nurse Practitioner Family | DX: R06.02 Shortness of breath (principal) | CPT/HCPCS: 93016; 93018; 93350; 93352 ==

== ENCOUNTER 2024-11-06 08:13 | Outpatient (AMB) | payer OTHER, SELFPAY ==
--- NOTE | 2024-11-06 12:12 | MHC.OFFVISWM ---
VS Expanded 11/06/24 12:19 Height 5 ft 6 in Weight 177 lb 2 oz BMI 28.6 Body Fat % 30.8 Body Fat Mass 54.5 Fat Free Mass 122.6 Visceral Fat Rating 10 Body Water % 50 Body Water Mass 88.6 Basal Metabolic Rate/Score 1,571 Intake Visit Reasons: TV Pre Op Hiatal Hernia 11/15/24 Allergies No Known Allergies Allergy (Verified 11/06/24 12:12) Medication List - Last Reconciled 11/06/24 by Abdoulaye Beckford MD atorvastatin 40 mg PO BEDTIME cholecalciferol (vitamin D3) 125 mcg PO DAILY mecobalamin (vitamin B12) 1,000 mcg sublingual DAILY omeprazole 40 mg PO QAM 90 days ondansetron 4 mg PO Q12H pantoprazole 40 mg PO DAILY polyethylene glycol 3350 17 grams PO DAILY sucralfate 10 mL PO BID HPI HPI TV Pre Op Hiatal Hernia 11/15/24: Details: Start time: 12.01pm, End time: 12.31pm ?I spent 25 minutes speaking with the patient on the phone plus an additional 5 minutes reviewing and updating records for a total of 30 minutes HPI Comments Details: Overall weight loss: 16lbs, or 8.3% TBWL Is doing 2 Celebrate Rebuild protein shakes, 2 Celebrate protein bars and one meal Exercise: walking [facility] Medical History (Updated 11/06/24 @ 12:08 by Abdoulaye Beckford MD) GERD (gastroesophageal reflux disease) Microscopic hematuria Osteoarthritis Family History Father Brain aneurysm Mother No problems noted. Social History Housing: House Are you a primary career development coordinator/teacher to a significant other at home: No Do you presently have visiting nurse or other home services: No Patient Tobacco Use Status: Former Tobacco user e-Cigarette/Vaping Use: Never Used Second Hand Smoke Exposure: No Current occupational status: employed Cognitive needs: No Hearing needs: No Vision needs: No Telehealth Telehealth Telehealth Platform: Telephone Location of provider rendering services: practice address Location of patient: address on file Patient Identification confirmed using: Name, : Yes Telehealth method: voice only Patient verbally consented to treatment: Yes Patient verbally consented to billing insurance company: Yes Patient informed of any privacy concerns related to visit: Yes Minutes spent on Phone/Video with Pt.: 30 Assessment & Plan Assessment & Plan (1) Large hiatal hernia: Code(s): K44.9 - Diaphragmatic hernia without obstruction or gangrene Category: Medical Plan: 1. We discussed the potential etiology of the hernia. We discussed the details of the diaphragmatic hernia repair and the potential technical challenges such as being able to achieve enough mobilization of the esophagus back in the abdomen and being able to close the diaphragmatic muscle (crura) primarily with sutures. We also discussed the possibility of using a biologic mesh to close the hernia defect if the crura cannot be adequately re-approximated primarily with sutures. We also discussed the option of doing a gastropexy or a fundoplication to prevent postoperative reflux and prevent hernia recurrence. As we discussed, I favor the gastropexy as the fundoplication can cause several distrurbing symptoms such as gas-bloating, flatulence, inability to burp which can be bothersome to patients especially for him with a history of IBS. Also we discussed the complexity of a potential hernia recurrence in association with a hernia recurrence. He was in agreement not to have a fundoplication. We also discussed that after surgery, he will need to be on a liquid diet with protein shakes the first week. The second week will add protein bars and soft foods and after the third week we will introduce small amounts of regular food. The transition to normal eating habits will take about 6 weeks which is the time required for the repair to heal completely. 2. Preop prescriptions were provided and explained the purpose of each one. Need to be purchased preop. Start Pantoprazole now as you get it from the pharmacy, 1 pill per day. Sucralfate and Zofran are for after surgery as needed. 3. Bowel prep: please do 7 packets ?of Miralax mixing each one with a an 8oz glass of water, crystal light, gatorade zero, or propel ?on 11/13/24 and the same amount on 11/14/24. The Miralax you begin with one packet at a time in 8oz water or crystal light, gatorade zero, or propel ?as early in the day as you can and you do them back to back until you finish them. Continue the protein shakes during ?the bowel prep. 4. Needs to purchase 1oz medicine cups . 5. Needs to purchase Children's liquid Tylenol for postop pain control. 6. Avoid aspirin, motrin, Advil, Aleve, Meloxicam, Excedrin, Ibuprofen, Naproxyn. Tylenol is OK. 7. Will do basic preop blood work-up any day between Wednesday11/07/24 and Wednesday11/10/24 8. Importance of adherence to postop folllow-up and recommendations was underscored and he understands that. 9. Stop food and bars as of Wednesday11/10/24 and continue with 4 Celebrate REBUILD protein shakes (ONE scoop EACH in 8oz almond milk) at 5am-7am, 8am-10am, 11am-1pm, 2pm-4pm and one more Celebrate REBUILD protein shake with TWO scoops in 8oz of almond milk at 5pm-7pm 10. No soups, broths or V8 11. The patient's?medical?history has been reviewed and they are considered low risk for post op DVT and therefore DVT prophylaxis is not considered necessary. Travel after surgery was reviewed. The patient has not disclosed any travel plans during the first 30 days after surgery and they have been advised that within the first 30 days after surgery any bus, plane, train or car travel over 2 hours in duration is contraindicated due to the possibility of developing blood clots from immobility. Any travel, needs to include periods of ambulation of 10 minutes in duration every 2 hours.? Patient was instructed to discuss any plans for travel during this period with their bariatric surgeon.? 12. Please take at the day of surgery the following medications: NONE 13. Absolutely no smoking or vaping, or marijuana until the surgery and for at least the first 4 weeks. Only nicotine patches are allowed. 14. Send me weight measurements tomorrow 11/07/24 and then on Wednesday11/15/2024, the day of surgery before you go to the hospital. 15. Avoid any steroids by mouth for any reason. Let me know if someone prescribes them to you Orders: Orders Partial Thromboplastin Time Today E78.5 - Hyperlipidemia, unspecified, R79.89 - Other specified abnormal findings of blood chemistry Complete Blood Count Auto Diff Today E78.5 - Hyperlipidemia, unspecified, R79.89 - Other specified abnormal findings of blood chemistry Hemoglobin A1c Today E78.5 - Hyperlipidemia, unspecified, R79.89 - Other specified abnormal findings of blood chemistry Comprehensive Met. Panel Today E78.5 - Hyperlipidemia, unspecified, R79.89 - Other specified abnormal findings of blood chemistry Prothrombin Time INR Today E78.5 - Hyperlipidemia, unspecified, R79.89 - Other specified abnormal findings of blood chemistry Type and Screen Today E78.5 - Hyperlipidemia, unspecified, R79.89 - Other specified abnormal findings of blood chemistry Medications: New pantoprazole 40 mg PO DAILY 90 tabs 0RF K21.9 - Gastro-esophageal reflux disease without esophagitis sucralfate 10 mL PO BID 600 mL 2RF K21.9 - Gastro-esophageal reflux disease without esophagitis ondansetron Only take one every 12 hours as needed if you have nausea 4 mg PO Q12H 20 tabs 0RF nausea and vomiting R11.0 - Nausea polyethylene glycol 3350 Mix each measuring cup with 8oz of water, Crystal light, or Gatorade zero, or Propel and do 7 measuring cups on 11/13/24 and another 7 measuring cups on 11/14/24 17 grams PO DAILY 238 grams 0RF Z01.818 - Encounter for other preprocedural examination
[2024-11-06 12:19] VITALS: BMI 28.6
== END 2024-11-06 12:32 | disposition home or self-care (01) ==
LOC: HO.HBS 08:13
PROVIDERS: PCP Nurse Practitioner Family; Visit Provider Surgery
DX: K44.9 Diaphragmatic hernia without obstruction or gangrene (principal)
CPT/HCPCS: 99499

== ENCOUNTER → 2024-11-06 08:13 | Outpatient (BNVA) | payer OTHER, SELFPAY | PROVIDERS: PCP Nurse Practitioner Family; Visit Provider Surgery ==

== ENCOUNTER 2024-11-15 07:22 | Inpatient (IN) | payer OTHER, SELFPAY ==
[2024-11-07 15:15] LABS: MANUAL DIFF FLAG NO
[2024-11-07 15:52] LABS: Basophils Percent Auto 0.7 % (0-2); Eosinophils Absolute Auto 0.3 X10*3/uL (0.0-0.4); Eosinophils Percent Auto 4.8 % (0-4); Imm Gran Abs Auto 0.01 X10*3/uL (0.00-0.03); Imm Gran Pct Auto 0.2 % (0.0-0.4); Lymphocytes Absolute Auto 1.5 X10*3/uL (1.2-4.9); Lymphocytes Percent Auto 27.8 % (20-40); Mean Corpuscular HGB Conc 34.2 g/dl (31.0-36.0); Mean Corpuscular Volume 96.4 fL (80.0-98.0); Mean Platelet Volume 10.6 fL (9.4-12.4); Monocytes Absolute Auto 0.6 X10*3/uL (0.1-1.2); Monocytes Percent Auto 10.1 % (2-11); Neutrophils Absolute Auto 3.1 x10*3/uL (2.0-8.3); Neutrophils Percent Auto 56.4 % (45-73); Platelet Count 260 X10*3/uL (160-400); Red Blood Count 3.94 X10*6/uL (4.60-5.80); Red Cell Distribution Width 12.1 % (11.0-16.0); White Blood Count 5.5 X10*3/uL (4.8-10.8)
[2024-11-07 16:02] LABS: Prothrombin Time 11.8 SEC (10.9-12.4)
[2024-11-07 16:05] LABS: Partial Thromboplastin Time 31.2 SEC (26.0-36.8)
[2024-11-07 17:13] LABS: Estimated Average Glucose 108 mg/dL; Hemoglobin A1C 121.7444 umol/L; Hemoglobin A1c % 5.4 % (<6.0); Total Hemoglobin (HGBA1C) 3393.1542 umol/L
[2024-11-07 17:50] LABS: Alanine Aminotransferase 26 U/L (0-40); Albumin Level 4.2 g/dL (3.5-5.0); Alkaline Phosphatase 85 U/L (39-117); Anion Gap 10 (12-20); Aspartate Amino Transferase 20 U/L (5-37); Bilirubin Total 0.3 mg/dL (0.0-1.0); Blood Urea Nitrogen 17 mg/dL (9-16); Carbon Dioxide 25 mmol/L (22-29); Chloride 109 mmol/L (96-108); Estimated Glomerular Filt Rate > 60; Glucose Random 98 mg/dL (60-115); Potassium 4.1 mmol/L (3.3-5.1); Sodium 140 mmol/L (135-145); Total Protein 6.9 g/dL (6.5-8.0)
[2024-11-13 09:30] VITALS: BMI 28.6
--- NOTE | 2024-11-14 09:57 | HO.ANESPROP2 ---
Documented by User: Heather Rodas NP 11/14/24 10:05 HPI - Anesthesia Eval Consult details Narrative: 64yo M for Hernia Diaphragmatic Lap Reducible PMFSH Active Problems Active Problems: All Active Problems GERD (gastroesophageal reflux disease) (Acute) Abnormal stress test (Acute) Vitamin B12 deficiency (Acute) Vitamin D deficiency (Acute) Smoker (Acute) Large hiatal hernia (Acute) Renal cysts, acquired, bilateral (Acute) Iron excess (Acute) Macrocytosis (Acute) Microscopic hematuria (Acute) COVID (Acute) Dyslipidemia (Acute) Right sided abdominal pain (Acute) Right flank pain (Acute) Hx of renal calculi (Acute) Elevated TSH (Acute) Screening PSA (prostate specific antigen) (Acute) Physical exam (Acute) Bronchitis (Acute) Past Medical History Medical History Former smoker GERD (gastroesophageal reflux disease) Osteoarthritis Microscopic hematuria Family History Family History Father Brain aneurysm Mother No problems noted. Family history of problems with anesthesia: No Surgical History Surgical History H/O endoscopy History of Problems with Anesthesia: No (Never had ) Social History Social History Housing: House Are you a primary career guidance technician to a significant other at home: No Do you presently have visiting nurse or other home services: No Patient Tobacco Use Status: Former Tobacco user Tobacco use type: Cigarette Cigarette Packs Per Day: 0.5 Cigarettes Per Day: 10.0 Years Smoked: 30 Smoked in Last 30 Days: No e-Cigarette/Vaping Use: Never Used Second Hand Smoke Exposure: No Use of substances other than those prescribed or required for medical reasons: No Have you been hit, kicked, punched, or otherwise hurt by someone within the past year? If so, by whom?: No Are you DNR?: No Advance Directives: No Advance Directives Information Provided: No Advance Directives on File: No Current occupational status: employed Cognitive needs: No Hearing needs: No Vision needs: No Meds Allergies Allergy/AdvReac Type Severity Reaction Status Date / Time No Known Allergies Allergy Verified 11/15/24 07:42 Exam Height,Weight and Vital Signs: Height 5 ft 6 in Weight 80.286 kg Pertinent Lab Results Pertinent Lab Results: Laboratory Tests 11/07/24 11/07/24 15:10 15:13 WBC 5.5 RBC 3.94 L Hgb 13.0 L Hct 38.0 L MCV 96.4 MCH 33.0 MCHC 34.2 RDW 12.1 Plt Count 260 MPV 10.6 Immature Gran % (Auto) 0.2 Neut % (Auto) 56.4 Lymph % (Auto) 27.8 [place] % (Auto) 10.1 Eos % (Auto) 4.8 H Baso % (Auto) 0.7 Lymph # (Auto) 1.5 [place] # (Auto) 0.6 Eos # (Auto) 0.3 Baso # (Auto) 0.0 Abs Immat Gran (auto) 0.01 Absolute Neuts (auto) 3.1 Absolute Nucleated RBC 0.000 Nucleated RBC % (auto) 0.0 PT 11.8 INR 1.0 APTT 31.2 Sodium 140 Potassium 4.1 Chloride 109 H Carbon Dioxide 25 Anion Gap 10 L BUN 17 H Creatinine 0.93 Estim Creat Clear Calc TNP Estimated GFR > 60 Random Glucose 98 Estimat Average Glucose 108 Hemoglobin A1c % 5.4 Calcium 9.0 Total Bilirubin 0.3 AST 20 ALT 26 Alkaline Phosphatase 85 Total Protein 6.9 Albumin 4.2 Blood Type O Negative Antibody Screen NEGATIVE Narrative Narrative: EKG 09/2024 Vent. Rate : 85 BPM Atrial Rate : 85 BPM P-R Int : 148 ms QRS Dur : 82 ms QT Int : 344 ms P-R-T Axes : 60 37 30 degrees QTcB Int : 409 ms Normal sinus rhythm Normal ECG When compared with ECG of 12-Jul-2024 09:34, No significant change was found ECHO 09/2024 Conclusions: - 1. Normal LV ejection fraction of 60-65% with grade 1 diastolic dysfunction 2. Cardiac valvular Dopplers within normal limits 3. No gross pericardial effusion ECHO Stress 2024 Conclusion: Normal stress test for ischemia at achieved workload. No evidence of exercise induced pulmonary hypertension. Assessment and Plan Assessment Anesthesia Assessment: Chart Reviewed Final Anesthetic Review Family History of Problems with Anesthesia: No History of Problems with Anesthesia: No (Never had ) Documented by User: Azul Park MD 11/15/24 10:56 PMFSH Past Medical History Medical History Former smoker GERD (gastroesophageal reflux disease) Osteoarthritis Microscopic hematuria Family History Family History Father Brain aneurysm Mother No problems noted. Surgical History Surgical History H/O endoscopy Social History Social History Housing: House Are you a primary career guidance technician to a significant other at home: No Do you presently have visiting nurse or other home services: No Patient Tobacco Use Status: Former Tobacco user Tobacco use type: Cigarette Cigarette Packs Per Day: 0.5 Cigarettes Per Day: 10.0 Years Smoked: 30 Smoked in Last 30 Days: No e-Cigarette/Vaping Use: Never Used Second Hand Smoke Exposure: No Use of substances other than those prescribed or required for medical reasons: No Have you been hit, kicked, punched, or otherwise hurt by someone within the past year? If so, by whom?: No Are you DNR?: No Advance Directives: No Advance Directives Information Provided: No Advance Directives on File: No Current occupational status: employed Cognitive needs: No Hearing needs: No Vision needs: No Meds Allergies Allergy/AdvReac Type Severity Reaction Status Date / Time No Known Allergies Allergy Verified 11/15/24 07:42 Exam Airway Mallampati Class: III TM Dist: >3cm Neck ROM: Full Loose/Missing/Broken Teeth: No Heart: RRR Lungs: CTA Assessment and Plan Assessment Anesthesia Assessment: Anesthesia Plan Discussed Final Anesthetic Review NPO: Yes ASA Class: II Final Preanesthetic Review: Meds/Allgs Chart Reviewed, Consent Obtained/Reviewed and Anes Risks/Benef Reviewed Patient Risk: Low Procedure Risk: Intermediate Anesthetic Plan Anesthetic Plan: GA Disposition: Standard PACU
[2024-11-15] VITALS (10 sets, daily range): BP systolic 140–175; BP diastolic 79–98; PULSE 82–104; RESP 16–19; TEMP 36.6–37.3; O2SAT 93–99; BMI 27.8
[2024-11-15] MEDS: Aprepitant 32 MG/4.4 ML VIAL IVPUSH (08:03)
[2024-11-15] MEDS: Lactated Ringers 1,000 ML 999 ML IV (08:07)
[2024-11-15] MEDS: Lactated Ringers 1,000 ML 100 ML IVCONT ×3 (08:08→23:23)
--- NOTE | 2024-11-15 09:20 | PHA.MEDREC ---
Pharmacy Consult ? Medication Reconciliation Pharmacy has reviewed the medication reconciliation done by RN.
--- NOTE | 2024-11-15 09:39 | MHC.SHP ---
Pre-Procedural Eval Section A - 24 Hr Update-Section A only Date of Service: 11/15/24 The patient is an INPATIENT: No The patient has been examined within 24 hours of the surgical procedure. The History & Physical has been completed within 30 days and I have reviewed it.: No Section B - Complete if H&P > 30 days Chief Complaint: Diaphragmatic Hernia Relevant Family History (Specify if Yes): Yes Relevant Social History: None Present Medications: None Medical History: No relevant PMH History of Previous Operations: No relevant previous surgery Allergies: Allergies Allergy/AdvReac Type Severity Reaction Status Date / Time No Known Allergies Allergy Verified 11/15/24 07:42 Review of Systems Sugical H&P ROS: Negative: Constitution, Cardiovascular, Respiratory, Neurological, Psychiatric, Hem-Onc, Allergic/Immunologic, Gastrointestinal, Genitourinary, Musculoskeletal, Integumentary, Endocrine and Eyes/Ears/Nose/Throat Exam Surgical H&P Exam: Normal: HEENT, Normal: Heart, Normal: Lungs, Normal: Extremities, Normal: Abdomen, Normal: Skin and Normal: Neurological Plan Diagnosis/Plan: Unchanged I have reviewed the history and physical and performed a pertinent physical examination on my patient. No changes have occurred unless specified. Time Spent With Patient Time: Total time managing care of this patient today ____ minutes.
--- NOTE | 2024-11-15 09:51 | PM.OP ---
Brief Operative Note Date of Service: 11/15/24 Pre-op diagnosis: Incarcerated diaphragmatic hernia Post-op diagnosis: same Procedure: Date of Service: 11/15/2024 Pre-op diagnosis: Diaphragmatic hernia Post-op diagnosis: same (Giant paraesophageal hernia & abdominal adhesions), almaz-esophageal lipoma x2, periaortic lymph node Procedure: Procedure: COMORBIDITIES: GERD, diaphragmatic hernia, hyperlipidemia, anxiety, depression, hypertension, knee pain ?INDICATIONS: The patient is a 64 year old female who was referred to me from Dr. Gonzales for a diaphragmatic hernia and GERD confirmed by EGD. The patient is scheduled today for diaphragmatic hernia repair. Risks of recurrent hernia, dysphagia, persistent GERD, VTE, leak, infection and bleeding were discussed with the patient and he is in agreement with the plan. PROCEDURE: Esophago-gastroscopy, laparoscopic excision of almaz-esophageal lipoma x2, laparoscopic excision of almaz-aortic lymph node, laparoscopic repair of incarcerated diaphragmatic hernia and laparoscopic gastropexy. DESCRIPTION OF PROCEDURE: After informed consent was obtained from the patient, the patient was given preoperative antibiotics, and was transferred to the operating room. After successful induction of general anesthesia, pneumatic compression devices were placed on both lower extremities. An upper endoscopy was performed next. The oropharynx and upper esophagus appeared to be within normal limits. The stomach was entered and the scope was advanced all the way to the pylorus.? After all fluid and air were suctioned and the stomach was fully decompressed, the scope was withdrawn and secured in the mid esophagus. The patient was then prepped and draped in the usual sterile manner. Abdominal access was established at the right upper quadrant with the Mike technique. A 12 mm blunt trocar was inserted and the abdomen was insufflated with CO2 to a pressure of 15 mmHg. Following that additional ports were placed, specifically two 5 mm Versi-step ports to the left upper and one 5 mm Versi-step to the right upper quadrant. 1% lidocaine plain was used to infiltrate all port sites as well as all fascia defects. Following that, the patient was placed in a steep reverse Trendelenburg position. An additional 5 mm port was placed to the right flank for the Mediflex retractor that was used to retract the left lobe of the liver. There was a giant paraesophageal hernia with about 1/3 of the stomach herniated into the chest next to the esophagus. I then opened the gastrocolic ligament between the transverse colon and the greater curvature of the stomach with the ultrasonic device to enter the lesser sac and facilitate the ligation of the short gastric vessels. I started at at the upper third along the greater curvature and using the Thunderbeat, all attachments were divided. There was an obvious significant-sized paraesophageal hiatal hernia. The stomach was incarcerated into the mediastinum with multiple thick adhesions. Mobilization of the stomach was very difficult and required tedious and careful dissection of the proximal short gastric vessels. I continued dissecting along the hiatus toward the left uriel into the mediastinum mobilizing the hernia sac from the mediastinum. The esophagus was carefully dissected off the aorta. The pleura spaces were not violated in either side. The pars flaccida was opened. It was actually herniated into the hernia defect. The vena cava was not dilated and it was carefully protected. I then continued by dissecting even further into the posterior retro-esophageal space all the way to the angle of His. I continued to mobilize the esophagus into the mediastinum circumferentially. The esophagus was densely adherent to the aorta and the majority of these adhesions were mobilized. Both vagal nerves were seen and preserved. There were two separate almaz-esophageal lipomas at the posterior segment of the distal esophagus. Those were excised separately with the Thunderbeat to reduce the bulk of fat in the area so I can perform properly the diaphragmatic hernia repair. During dissection at the proximal esophagus there was a small tumor near the aorta. It could have been an enlarged lymph node. This was excised intact with a surrounding fat margin and was sent separately to the pathology department. With extensive circumferential dissection into the mediastinum, I was able to bring the GE junction at least 3cm below the crura. I closed the hernia defect with four interrupted #0 Surgidac sutures using the Endo Stitch device, two of which were placed posterior and two of which anterior to the esophagus. The bites were carefully placed to include both the ventral and dorsal aspect of the two crura, advancing slightly more at the left uriel as it was located more diagonally than the right. ? A gastropexy was then performed in order to prevent postoperative GERD and partial gastric volvulus. Several interrupted 2.0 Surgidac sutures were placed between the greater curvature of the dissected stomach and the previously divided greater omentum and gastro-colic ligament using the Endo-Stitch device. ?An upper endoscopy was performed. There was no narrowing at the GE junction or any esophageal injury. The scope was easily advanced all the way to the pylorus which was clearly visualized. There was no narrowing anywhere. I confirmed that the GE junction was 3cm intra-abdominally. At that point the gastroscope was withdrawn from the patient?s mouth while we were decompressing the bowel and the stomach from any remaining air. I looked into the lesser sac to see how the stomach was situating and it was situating well. There was no bleeding from the, spleen, or short gastric vessels. The Mediflex retractor was removed, and the undersurface of the liver was inspected and there was no bleeding. The patient was placed in supine position. Then 30cc of Ropivacaine plain with 10 mg of Dexamethasone were used to infiltrate the fascial closure as well as all skin incisions. At this point, the abdomen was deflated, all ports were removed under direct vision, and no bleeding was noted from any of the port sites. The skin incisions were irrigated with saline and were closed with 4-0 absorbable monofilament sutures. Steri-Strips and OpSites were used to cover all incisions. The patient was extubated and was transferred in stable condition to the recovery room for further care. I was present and performed all bains parts of the procedure. Ms Shankar was the assistant media planner. There were no residents to assist with this case. Farhat Beckford MD, PhD, FACS Surgeon: Abdoulaye Beckford MD Anesthesia: GETA, local and other (TAP block) Was an Lav Crewman used for this Procedure?: No Lav Crewman: Sylvia Shankar Estimated blood loss (mL): 10 IV fluids (mL): 2,000 Urine output (mL): 0 (No Luciano to record output) Pathology: other (1) almaz-esophageal lipoma x2, 2) almaz-aortic lymph node x1) Condition: stable Disposition: PACU
--- NOTE | 2024-11-15 09:55 | P.PNGS_ITS ---
Subjective Subjective Date of Service: 11/16/24 Interval history: Feels well. Mild incisional pain. She is tolerating phase 1 bariatric diet Physical Exam 2 Vital Signs: Vital Signs: Last Vital Signs Temp 98.1 F 11/15/24 07:49 Pulse 82 11/15/24 07:49 Resp 16 11/15/24 07:49 BP 140/90 H 11/15/24 07:49 Pulse Ox 97 11/15/24 07:49 O2 Del Method Room Air 11/15/24 07:49 BMI result Body Mass Index 27.8 GI: Inspection: Yes normal to inspection and Yes incision (clean, dry and intact) Extrem: Right lower extremity: normal to inspection (no calf tenderness) L eft lower extremity: normal to inspection (no calf tenderness) Objective Data Active Medications Albuterol Sulfate (Albuterol Sulfate (0.083%) 2.5 Mg/3 Ml Vial.Neb) 2.5 mg INHALE ONCE PRN PRN Reason: Shortness of Breath/Wheezing Lactated Ringer's (Lr) 1,000 mls @ 100 mls/hr IVCONT .Q10H RHEA Last Admin: 11/15/24 08:08 Dose: 100 mls/hr Documented By: MILTON [facility] 11/16/24 07:00 11/16/24 07:00 Procedures Date of Service Date of Service: 11/16/24 Progress Note: A&P Assessment and plan (1) Large hiatal hernia: Status: Acute Assessment and Plan: s/p laparoscopic diaphragmatic hernia repair, gastropexy, laparoscopic excision of almaz-esophageal lipoma and almaz-aortic lymph node Doing well Will check am labs and if OK the patient will be discharged home (2) GERD (gastroesophageal reflux disease): Status: Acute (3) Dyslipidemia: Status: Acute (4) Steatosis, liver: Status: Acute (5) Diastolic dysfunction: Status: Acute (6) S/P repair of paraesophageal hernia: Status: Acute (7) Periaortic mass: Status: Acute (8) Lipoma of stomach: Status: Acute Time Spent With Patient Time: Total time managing care of this patient today ____ minutes. Quality Stroke Does the patient have a stroke diagnosis?: No VTE Prior VTE?: No VTE Risk Level:: Surgical - moderate VTE Device Contraindication: N/A - Device Ordered VTE Drug Contraindication: Treatment Not Indicated
--- NOTE | 2024-11-15 10:00 | PC.NURSE ---
Late Entry- Entire procedure, Hernia Diaphragmatic Laparoscopic Reducible, not present in 24 hour preop note nor last office note. Cornel Serra, Rubia Chávez, as well as Risk involved. Per Dr. Terence Barkley cleared to proceed with surgery by telephone discussion with Risk Team. Shahrzad Mcmillan OR nurse aware.
[2024-11-15] MEDS: ceFAZolin Sodium/Dextrose,Iso 2 GM/50 ML PIGGYBACK IV ×2 (10:40→15:15)
[2024-11-15] MEDS: Acetaminophen 1,000 MG/100 ML PIGGYBACK 400 MG IV (12:15)
--- NOTE | 2024-11-15 13:03 | P.DS_ITS ---
DS: Providers Provider Date of Service: 11/16/24 Date of admission: 11/15/24 07:22 Date of discharge: 11/16/24 Primary care physician: Chris Gonzales [facility] DS: Diagnosis Discharge Diagnosis (1) Large hiatal hernia: Status: Acute (2) GERD (gastroesophageal reflux disease): Status: Acute (3) Dyslipidemia: Status: Acute (4) Steatosis, liver: Status: Acute (5) Diastolic dysfunction: Status: Acute DS: Summary Hospital Course Hospital Course: ADMITTING DIAGNOSIS: diaphragmatic hernia, GERD, diastolic dysfunction, liver steatosis, renal cysts, macrocytosis, dyslipidemia ? DISCHARGE DIAGNOSIS: same, s/p laparoscopic repair diaphragmatic hernia with gastropexy ? PAST SURGICAL HISTORY:?n/a ? PROCEDURE: upper endoscopy, laparoscopic repair of diaphragmatic hernia and gastropexy ? DISCHARGE SUMMARY: ? History of Present Illness: ? The patient is a? 64? year-old male with a BMI of? ?27.8 ? kg/m2 and associated co-morbidities as described above. The patient presented to our office with persistent GERD and a large hiatal hernia. He had extensive work-up and was electively scheduled for laparoscopic, possible diaphragmatic hernia repair and gastropexy. Risks and complications of the surgery were discussed with the patient in advance, particularly the possibility of , pulmonary embolism, bleeding, bowel injury, GERD, cardiac, renal or pulmonary complications. The patient understood all the risks and was in agreement with the surgical plan. ? Hospital Course: ? The patient underwent an uneventful laparoscopic repair of diaphragmatic hernia with gastropexy on the day of admission. Postoperatively, the patient was transferred to the surgical floor. The patient received IV Acetaminophen and IV dilaudid for pain control. Patient was started on bariatric phase 1 diet POD #0. On postoperative day one, the patient was feeling well without nausea, vomiting, fevers, or tachycardia. The patient had some mild incisional pain and the abdomen was soft.? ? On the morning of postoperative day one, the patient was continued on 1 ounce of water or ice every half hour. During the day, the patient did fairly well, having some incisional pain, but able to ambulate adequately and to tolerate liquids well. ? Since the patient is doing well, we decided that the patient was ready to be discharged. The patient was given instructions to follow-up with me next week and to call my office for any fever over 101, persistent abdominal pain, nausea, vomiting, GERD, symptoms of DVT such as calf tenderness, or leg swelling, or pulmonary embolism such as chest pain or shortness of breath.? The patient was also instructed to drink 40-60 ounces of liquids per day using the 1-ounce cups. The patient had been given prescriptions for Tylenol for pain, Zofran prn for nausea, and pantoprazole and carafate previously. The patient was encouraged to ambulate and use the incentive spirometer. The patient was allowed to shower, but no baths, and encouraged to stay active at home. All of these instructions were given to the patient personally. All questions were answered and the patient understood all instructions, the instructions were also given to the patient in print. Time Attestation Discharge Coordination Time (in mins): 30 Quality: Safe Use of Opioids Does Pt have an Active Cancer Diagnosis on the Problem List?: No Quality: Stroke Does the patient have a stroke diagnosis?: No Physical Exam Vital Signs: Vital Signs: Last Vital Signs Temp 98.1 F 11/15/24 07:49 Pulse 82 11/15/24 07:49 Resp 16 11/15/24 07:49 BP 140/90 H 11/15/24 07:49 Pulse Ox 97 11/15/24 07:49 O2 Del Method Room Air 11/15/24 07:49 BMI result Body Mass Index 27.8 DS: Data Data Completed and Pending Pending studies at discharge: Pending at discharge 11/15/24 12:19 Surgical [PTH] Routine 11/15/24 12:57 Surgical [PTH] Routine Discharge Plan Discharge Anticipated Discharge Date/Time: 11/16/24 10:00 Patient Disposition: Home, Self-Care Discharge Diagnosis: s/p laparoscopic diaphragmatic hernia repair with gastropexy Referrals: Chris Gonzales, LOADER-BC [Primary Care Provider] - 1 Week Discharge Medications: Continued atorvastatin 40 mg tablet 40 mg PO BEDTIME Qty: 90 1RF pantoprazole 40 mg tablet,delayed release (DR/EC) 40 mg PO DAILY Qty: 90 0RF sucralfate 100 mg/mL suspension 10 ml PO BID Qty: 600 2RF ondansetron 4 mg tablet,disintegrating 4 mg PO Q12H Qty: 20 0RF Rx Instructions: Only take one every 12 hours as needed if you have nausea Discontinued cholecalciferol (vitamin D3) 125 mcg (5,000 unit) capsule 125 mcg PO DAILY Qty: 90 0RF mecobalamin (vitamin B12) 1,000 mcg tablet,disintegrating 1,000 mcg sublingual DAILY Qty: 90 0RF Rx Instructions: place tablet under tongue and allow to dissolve for at least30 secs before swallowing Discharge Orders: Discharge Order (Routine); Ordered 11/16/24 Ordered By: Abdoulaye Beckford Activity on Discharge: No heavy lifting Stand Alone Forms: Patient Portal Discharge page Print Language: Chinese Care Plan Goals: resolution of GERD Health Concerns: diaphragmatic hernia Plan of Treatment: No tub baths, sex or returning to work until discussed at first post op appointment. No alcohol, tobacco or illegal drug use. Continue to use incentive spirometer hourly while awake. Walk in home for 5- 10 minutes every 2 hours during the first week. Wear abdominal binder with activity. Follow all meal plan instructions from your bariatric surgeon. Review bariatric handbook and call with any questions. Discharge Instructions 1. Please call your doctor or come back to the emergency room should any new symptoms arise. 2. Activity: abstain from alcohol,? limited stair climbing, no bending, no driving, no exercise, no illicit substances, no lifting, no sex, no tub bath, no work. 4. Diet: follow your bariatric surgeons recommendations for advancing diet. 5. Dressing Change/Wound Care: Your incisions are covered with waterproof dress ings. You can shower with these and pat dry. Do not rub over dressings or incisions. If the area is tender, you may apply an ice pack for short intervals (no more than 20 minutes on, followed by at least 20 minutes off). Do not apply heat. Do not use creams, lotions, or topical antibiotics unless instructed to do so by your surgeon. 6. Call your doctor if: - Your temperature exceeds 101.5 F - You experience excessive pain or swelling - You have an unexpected reaction to medication - You have excessive bleeding - You experience continued vomiting/nausea - Your incision begins to separate - Your incision shows signs of infection such as increased redness, swelling, excessive pain, heat, or drainage (light blood or clear fluid is normal) General instructions: No lifting greater than 10 lbs for the next 6 weeks[address] driving within 24 hours of taking narcotic pain medications. If you do not move your bowels in the next 2 days, please take milk of magnesia over the counter. Please follow the post op diet and do not advance your diet until you are seen in the office in about 2 weeks. Please walk around your home every hour or two to prevent blood clots from forming in your legs. You do not need to wake from sleeping to walk. Please sleep in a bed or couch to prevent kinking at the hips and knees. Please take your incentive spirometer (your lung water/wastewater project engineer) home with you and use it for the next few days to prevent pneumonias. You may shower, no hot tubs, baths or swimming pools. Please call the office with any questions or concerns such as increasing abdominal pain, fever, chills, shortness of breath, chest pain, leg pain or swelling, or redness or drainage from your incisions. Please make sure you are consuming 40-60 ounces of total fluids per day. Avoid all carbonation. Do not hesitate to contact the office with any questions at . The patient's medical history has been reviewed and they are considered low risk for post op DVT and therefore DVT prophylaxis is not considered necessary. Travel after surgery was reviewed. The patient has not disclosed any travel plans during the first 30 days after surgery and they have been advised that within the first 30 days after surgery any bus, plane, train or car travel over 2 hours in duration is contraindicated due to the possibility of developing blood clots from immobility. Any travel, needs to include periods of ambulation of 10 minutes in duration every 2 hours.? The patient was instructed to discuss any plans for travel during this period with their bariatric surgeon. Assessment: s/p diaphragmatic hernia repair with gastropexy Discharge Date/Time: 11/16/24 08:37
[2024-11-15 14:18] LABS: Hematocrit 40.2 % (42.0-52.0); Hemoglobin 14.4 g/dl (14.0-18.0)
[2024-11-15 14:36] LABS: Anion Gap 13 (12-20); Blood Urea Nitrogen 20 mg/dL (9-16); Carbon Dioxide 22 mmol/L (22-29); Chloride 108 mmol/L (96-108); Creatinine Clr Calc Pharmacy 71.7; Estimated Glomerular Filt Rate > 60; Glucose Random 121 mg/dL (60-115); Potassium 4.3 mmol/L (3.3-5.1); Sodium 139 mmol/L (135-145)
[2024-11-15] MEDS: Acetaminophen 1,000 MG/100 ML PIGGYBACK 16.7 MG IV ×2 (17:09→22:26)
[2024-11-15] MEDS: 0.9 % Sodium Chloride Flush 3 ML SYRINGE IVFLUSH (20:03)
[2024-11-15] MEDS: Famotidine/PF 20 MG/2 ML VIAL IVPUSH (20:03)
[2024-11-15] MEDS: Atorvastatin Calcium 40 MG TABLET PO (20:03)
[2024-11-15] MEDS: Metoprolol Tartrate 5 MG in 0.9 % Sodium Chloride 50 ML 220 MG IV (23:19)
[2024-11-16 00:26] VITALS: BP 126/73; PULSE 69; RESP 18; TEMP 36.3; O2SAT 96
[2024-11-16 04:00] VITALS: BP 140/80; PULSE 73; RESP 18; TEMP 36.6; O2SAT 96
[2024-11-16] MEDS: Acetaminophen 1,000 MG/100 ML PIGGYBACK 16.7 MG IV (04:40)
[2024-11-16] MEDS: Metoprolol Tartrate 5 MG in 0.9 % Sodium Chloride 50 ML 220 MG IV (04:40)
[2024-11-16] MEDS: Famotidine/PF 20 MG/2 ML VIAL IVPUSH (06:57)
[2024-11-16 07:04] VITALS: BP 139/84; PULSE 80; RESP 16; TEMP 37.3; O2SAT 96
[2024-11-16 07:04] LABS: MANUAL DIFF FLAG NO
[2024-11-16 07:14] LABS: Basophils Percent Auto 0.1 % (0-2); Hemoglobin 12.5 g/dl (14.0-18.0); Imm Gran Abs Auto 0.03 X10*3/uL (0.00-0.03); Imm Gran Pct Auto 0.4 % (0.0-0.4); Lymphocytes Absolute Auto 0.8 X10*3/uL (1.2-4.9); Lymphocytes Percent Auto 10.4 % (20-40); Mean Corpuscular HGB Conc 35.7 g/dl (31.0-36.0); Mean Corpuscular Volume 92.3 fL (80.0-98.0); Mean Platelet Volume 10.7 fL (9.4-12.4); Monocytes Absolute Auto 0.8 X10*3/uL (0.1-1.2); Monocytes Percent Auto 9.9 % (2-11); Neutrophils Absolute Auto 6.1 x10*3/uL (2.0-8.3); Neutrophils Percent Auto 79.2 % (45-73); Platelet Count 252 X10*3/uL (160-400); Red Blood Count 3.79 X10*6/uL (4.60-5.80); Red Cell Distribution Width 12.1 % (11.0-16.0); White Blood Count 7.8 X10*3/uL (4.8-10.8)
[2024-11-16 07:31] LABS: Anion Gap 13 (12-20); Blood Urea Nitrogen 17 mg/dL (9-16); Calcium 8.6 mg/dL (8.4-10.2); Carbon Dioxide 24 mmol/L (22-29); Chloride 107 mmol/L (96-108); Creatinine Clr Calc Pharmacy 91.8; Estimated Glomerular Filt Rate > 60; Glucose Random 117 mg/dL (60-115); Potassium 4.2 mmol/L (3.3-5.1); Sodium 140 mmol/L (135-145)
--- NOTE | 2024-11-16 09:06 | MHC.CM.PN ---
Patient discharged prior to being seen by case management.
--- NOTE | 2024-11-16 09:11 | HO.POSTANES ---
Post Anesthesia Evaluation Post Anesthesia Evaluation Date of Service: 11/16/24 Vital Signs: Vital Signs Temp Pulse Resp BP Pulse Ox O2 Del Method 11/16/24 07:04 99.2 F 80 16 139/84 96 Room Air 11/16/24 04:00 97.9 F 73 18 140/80 H 96 Room Air 11/16/24 00:26 97.4 F 69 18 126/73 96 Room Air 11/15/24 23:01 97.9 F 91 18 140/80 H 96 Room Air Anesthesia: General Endotracheal-GETA Mental Status: Awake Pain Control: Satisfactory Nausea/Vomiting: None Hydration: Adequate Anesthesia-Related Issues: No Anes. Related Issues
== END 2024-11-16 08:37 | disposition home or self-care (01) | DRG 220 ==
LOC: HO.SSSA 07:35 → HO.S3 13:15
PROVIDERS: Physician Assistant Surgical; Admitting Provider Surgery; PCP Nurse Practitioner Family; Visit Provider Surgery
PROC: 0BQT4ZZ Repair Diaphragm, Percutaneous Endoscopic Approach (ICD-10-PCS; CPT 43281; principal; 2024-11-15 10:10)
DX: K44.0 Diaphragmatic hernia with obstruction, without gangrene (principal); D17.79 Benign lipomatous neoplasm of other sites; K66.0 Peritoneal adhesions (postprocedural) (postinfection); I11.9 Hypertensive heart disease without heart failure; E78.5 Hyperlipidemia, unspecified; K76.0 Fatty (change of) liver, not elsewhere classified; K21.9 Gastro-esophageal reflux disease without esophagitis; F41.9 Anxiety disorder, unspecified; Z87.891 Personal history of nicotine dependence; Z79.899 Other long term (current) drug therapy
CPT/HCPCS: 43281; 38570; 36415; 80048; 80053; 83036; 85014; 85018; 85025; 85610; 85730; 86850; 86900; 86901; 88304; 88305; A4649; C9145; J0131; J0690; J1100; J1171; J2003; J2250; J2371; J2405; J2704; J2795; J3010; J7120

== ENCOUNTER → 2024-11-15 07:22 | Outpatient (BNV) | payer OTHER, SELFPAY | PROVIDERS: Admitting Provider Surgery; PCP Nurse Practitioner Family; Visit Provider Surgery | DX: K44.9 Diaphragmatic hernia without obstruction or gangrene (principal); Z98.890 Other specified postprocedural states; Z87.19 Personal history of other diseases of the digestive system | CPT/HCPCS: 38570; 43281; 99024; 99499 ==

== ENCOUNTER 2024-11-24 14:47 | Outpatient (AMB) | payer OTHER, SELFPAY ==
--- NOTE | 2024-11-24 15:11 | MHC.OFFVISWM ---
VS Expanded 11/24/24 15:29 BP 145/85 H Blood Pressure Location Rt brachial Blood Pressure Position Sitting Pulse 87 Pulse Source Pulse Oximeter Temp 97.9 F Temperature Source Temporal Artery Scan Pulse Oximetry 98 Oxygen Delivery Method Room Air Height 5 ft 6 in Weight 168 lb 3.2 oz BMI 27.1 Body Fat % 27.6 Body Fat Mass 46.2 Fat Free Mass 121.6 Visceral Fat Rating 14.0 Body Water % 49.1 Body Water Mass 82.4 Muscle Mass/Score 115.6 Basal Metabolic Rate/Score 1,605 Intake Visit Reasons: (OV) s/p Hiatal Hernia 11/15/24 Allergies No Known Allergies Allergy (Verified 11/15/24 07:42) HPI Comments Details: Patient is a pleasant 64-year-old male who returns to the office today in follow-up. He is postop day 9, status post hiatal hernia repair performed on 11/15/2024. He is tolerating 2 premier protein ready to drink shakes, 2 celebrate protein bars and 6 forks of cottage cheese. [facility] Medical History Former smoker GERD (gastroesophageal reflux disease) Osteoarthritis Microscopic hematuria Surgical History H/O endoscopy Family History Father Brain aneurysm Mother No problems noted. Social History Household Members: None Housing: House Are you a primary care center manager to a significant other at home: No Do you presently have visiting nurse or other home services: No Patient Tobacco Use Status: Former Tobacco user Tobacco use type: Cigarette Cigarette Packs Per Day: 0.5 Cigarettes Per Day: 10.0 Years Smoked: 30 e-Cigarette/Vaping Use: Never Used Second Hand Smoke Exposure: No Current occupational status: employed Cognitive needs: No Hearing needs: No Vision needs: No Physical Exam GI Inspection: Yes incision (Clean, dry, intact.) Assessment & Plan Assessment & Plan (1) S/P repair of paraesophageal hernia: Code(s): Z98.890 - Other specified postprocedural states; Z87.19 - Personal history of other diseases of the digestive system Category: Surgical Plan: Patient denies any pain, tolerating his shakes and cottage cheese. Anxious to return to a more expanded meal plan. Encouraged to discuss with Dr. Beckford. Told to continue to wear his abdominal binder for the next 2 weeks with exercise and activity. Continue to monitor p.o. intake at a paste that was recommended. Follow-up in the office 4-6 weeks
[2024-11-24 15:29] VITALS: BP 145/85; PULSE 87; TEMP 36.6; O2SAT 98; BMI 27.1
== END 2024-11-24 15:33 | disposition home or self-care (01) ==
PROVIDERS: PCP Nurse Practitioner Family; Visit Provider Physician Assistant Surgical
DX: Z98.890 Other specified postprocedural states (principal); Z87.19 Personal history of other diseases of the digestive system
CPT/HCPCS: 99024

== ENCOUNTER 2024-12-22 08:41 | Outpatient (AMB) | payer OTHER, SELFPAY ==
--- NOTE | 2024-12-22 08:48 | A.OFFVIS_ITS ---
VS Expanded 12/22/24 08:51 BP 141/75 H Blood Pressure Location Rt brachial Blood Pressure Position Sitting Pulse 82 Pulse Source Pulse Oximeter Temp 97.5 F Temperature Source Temporal Artery Scan Pulse Oximetry 97 Oxygen Delivery Method Room Air Height 5 ft 6 in Weight 173 lb 12.8 oz BMI 28.0 Body Fat % 26.7 Body Fat Mass 46.2 Fat Free Mass 127.4 Visceral Fat Rating 14.0 Body Water % 50.5 Body Water Mass 87.8 Muscle Mass/Score 121.0 Basal Metabolic Rate/Score 1,677 Intake Visit Reasons: (OV) s/p Hiatal Hernia 11/15/24 Allergies No Known Allergies Allergy (Verified 12/22/24 08:51) HPI Comments Details: Patient is a pleasant 64-year-old male who returns to the office today in follow-up. He is approximately 1 month post hiatal hernia partial repair on 11/15/2024. He reports he is doing excellent. He denies any complaints. He is doing a shake in the morning, yogurt mid day and a small portion meal at night. He walks 3 miles every morning and is very active in his job. He has no complaints at this time. [facility] Medical History (Updated 11/24/24 @ 00:01 by Cyndi Timmons) Physical exam Former smoker GERD (gastroesophageal reflux disease) Osteoarthritis Microscopic hematuria Surgical History (Updated 12/22/24 @ 08:52 by Jennifer Abbott CMA) S/P repair of paraesophageal hernia H/O endoscopy Family History Father Brain aneurysm Mother No problems noted. Social History Household Members: None Housing: House Are you a primary youth career specialist to a significant other at home: No Do you presently have visiting nurse or other home services: No Patient Tobacco Use Status: Former Tobacco user Tobacco use type: Cigarette Cigarette Packs Per Day: 0.5 Cigarettes Per Day: 10.0 Years Smoked: 30 e-Cigarette/Vaping Use: Never Used Second Hand Smoke Exposure: No Current occupational status: employed Cognitive needs: No Hearing needs: No Vision needs: No Physical Exam Vital Signs: Last Vital Signs Temp 97.5 F 12/22/24 08:51 Pulse 82 12/22/24 08:51 BP 141/75 H 12/22/24 08:51 Pulse Ox 97 12/22/24 08:51 Oxygen Delivery Method Room Air 12/22/24 08:51 BMI result Body Mass Index 28.0 Const General: healthy appearing and no acute distress Resp Effort & Inspection: normal respiratory effort Assessment & Plan Assessment & Plan (1) S/P repair of paraesophageal hernia: Code(s): Z98.890 - Other specified postprocedural states; Z87.19 - Personal history of other diseases of the digestive system Category: Surgical Plan: Patient is doing well 1 month postop. We will have him return to the office 3 months postop. He has no complaints of reflux and we will continue his current plans.
[2024-12-22 08:51] VITALS: BP 141/75; PULSE 82; TEMP 36.4; O2SAT 97; BMI 28.0
== END 2024-12-22 09:03 | disposition home or self-care (01) ==
PROVIDERS: PCP Nurse Practitioner Family; Visit Provider Physician Assistant Surgical
DX: Z98.890 Other specified postprocedural states (principal); Z87.19 Personal history of other diseases of the digestive system
CPT/HCPCS: 99024

== ENCOUNTER → 2024-12-22 08:41 | Outpatient (BNVA) | payer OTHER, SELFPAY | PROVIDERS: PCP Nurse Practitioner Family; Visit Provider Physician Assistant Surgical | DX: Z48.815 Encounter for surgical aftercare following surgery on the digestive system (principal); Z98.890 Other specified postprocedural states | CPT/HCPCS: 99212 ==

== ENCOUNTER 2025-02-19 13:30 | Outpatient (AMB) | payer OTHER, SELFPAY ==
--- NOTE | 2025-02-19 13:40 | MHC.OFFVISWM ---
VS Expanded 02/19/25 13:42 Height 5 ft 6 in Weight 178 lb BMI 28.7 Intake Visit Reasons: (TV) s/p Hiatal Hernia 11/15/24 Machine Heel Seat Laster Required: No Allergies No Known Allergies Allergy (Verified 12/22/24 08:51) Medication List - Last Reconciled 02/19/25 by NOAH Vidal atorvastatin 40 mg PO BEDTIME HPI Comments Details: Patient is a pleasant 64-year-old male who returns to the office today in follow-up. He is approximately 3 month post hiatal hernia partial repair on 11/15/2024. States his weight is 178 pounds with a BMI of 28.7. He reports he is doing excellent. He denies any complaints. He is not following any particular meal plan. He states that he is eating regularly. He denies any abdominal pain, nausea, reflux. He does not wish to lose weight any further and he does not wish to have a prescribed meal plan. He walks 3 miles every morning and is very active in his job. He has no complaints at this time. [facility] Medical History Physical exam Former smoker GERD (gastroesophageal reflux disease) Osteoarthritis Microscopic hematuria Surgical History S/P repair of paraesophageal hernia H/O endoscopy Family History Father Brain aneurysm Mother No problems noted. Social History Household Members: None Housing: House Are you a primary caregivers homecare to a significant other at home: No Do you presently have visiting nurse or other home services: No Patient Tobacco Use Status: Former Tobacco user Tobacco use type: Cigarette Cigarette Packs Per Day: 0.5 Cigarettes Per Day: 10.0 Years Smoked: 30 e-Cigarette/Vaping Use: Never Used Second Hand Smoke Exposure: No Current occupational status: employed Cognitive needs: No Hearing needs: No Vision needs: No Telehealth Telehealth Telehealth Platform: Telephone Location of provider rendering services: practice address Location of patient: address on file Patient Identification confirmed using: Name, : Yes Telehealth method: voice only Patient verbally consented to treatment: Yes Patient verbally consented to billing insurance company: Yes Patient informed of any privacy concerns related to visit: Yes Minutes spent on Phone/Video with Pt.: 10 Assessment & Plan Assessment & Plan (1) S/P repair of paraesophageal hernia: Code(s): Z98.890 - Other specified postprocedural states; Z87.19 - Personal history of other diseases of the digestive system Category: Surgical Plan: Patient is doing well 3 months postoperatively. He does not wish to have any further weight loss. He is following his own meal plan and has no complaints of pain, reflux, nausea, vomiting. He will follow up in the office as needed.
[2025-02-19 13:42] VITALS: BMI 28.7
== END 2025-02-19 14:28 | disposition home or self-care (01) ==
LOC: HO.HBS 14:01
PROVIDERS: PCP Nurse Practitioner Family; Visit Provider Physician Assistant Surgical
DX: E66.3 Overweight (principal); Z68.28 Body mass index [BMI] 28.0-28.9, adult; Z87.19 Personal history of other diseases of the digestive system; Z98.890 Other specified postprocedural states
CPT/HCPCS: 98012

== ENCOUNTER 2025-03-27 15:14 | Outpatient (AMB) | payer OTHER, SELFPAY ==
--- NOTE | 2025-03-27 15:37 | A.OFFPC_ITS ---
Vital Signs 03/27/25 15:39 Height 5 ft 6 in Weight 188 lb BMI 30.3 BP 112/66 Blood Pressure Location Rt brachial Position Sitting Respiration 16 Pulse 85 Pulse Source Pulse Oximeter Pulse Oximetry (%) 96 Oxygen Delivery Method Room Air Intake Visit Reasons: PE reschedule Breed To [employer] Technician Required: No Allergies No Known Allergies Allergy (Verified 03/27/25 16:03) Medication List - Last Reconciled 03/27/25 by ODETTE Morfin atorvastatin 40 mg PO BEDTIME Tobacco use date assessed: 03/27/25 Dental Screening Dental Screen Date: 03/27/25 Did you have a dental visit in the last 12 months?: No Did you have a dental problem in the last 6 months where you did not have access to dental care?: No Was dental information given to patient?: No HPI PE reschedule HPI Details History of Present Illness The patient is a 64-year-old male presenting for a physical exam. He denies experiencing any chest pain, shortness of breath, abdominal pain, blood in stool, constipation, diarrhea, or urinary symptoms. He is not interested in undergoing a colonoscopy or using Cologuard, although the test was sent for consideration. The importance of colon cancer screening was reinforced during the visit. Health Maintenance - Colon cancer screening: Discussed impo rtance and sent Cologuard test for consideration Social History Review of Systems - Cardiovascular: Denies chest pain - Respiratory: Denies shortness of breat h - Gastrointestinal: Denies abdominal greg n, blood in stool, constipation, diarrhea - Genitourinary: Denies urinary symptoms Physical Exam General: Cooperative, healthy appearing, comfortable, no acute distress and well developed, obese Orientation: Patient oriented x3 Limitations: No limitations Head: Normal to inspection Ears: Hearing grossly normal bilaterally Nose: Normal external nose present Face and sinus: Normal facial exam Eyes: Appearance normal, both eyes and all related structures Neck: Normal visual inspection and Yes full ROM Respiratory: Normal respiratory effort and able to speak in complete sentences. Clear to auscultation bilaterally Cardiovascular: Regular rate and rhythm. Normal S1 and S2 GI: Normal to inspection. Soft to palpation and nontender : Testicles without masses/lesions and no hernias appreciated Skin: No rashes or lesions noted Neuro: Patient oriented x3 Extremities: Normal to inspection Results Plan The patient was advised on the importance of colon cancer screening, despite his current reluctance to undergo a colonoscopy or use Cologuard. The Cologuard test was sent for consideration, and the patient was encouraged to think about completing it in the future. Discussion Notes I discussed with the patient the importance of colon cancer screening and the options available, including colonoscopy and Cologuard. Despite his reluctance, I emphasized the benefits of early detection and encouraged him to consider the Cologuard test, which was sent for his consideration. NOTE: referring for LDCT Patient Instructions - Consider completing the Cologuard test for colon cancer screening. PENDING SALE TO [facility] Medical History Physical exam Former smoker GERD (gastroesophageal reflux disease) Osteoarthritis Microscopic hematuria Surgical History S/P repair of paraesophageal hernia H/O endoscopy Family History Father Brain aneurysm Mother No problems noted. Social History Household Members: None Housing: House Are you a primary rn primary care to a significant other at home: No Do you presently have visiting nurse or other home services: No Patient Tobacco Use Status: Former Tobacco user Tobacco use type: Cigarette Cigarette Packs Per Day: 0.5 Cigarettes Per Day: 10.0 Years Smoked: 30 e-Cigarette/Vaping Use: Never Used Second Hand Smoke Exposure: No Current occupational status: employed Cognitive needs: No Hearing needs: No Vision needs: No Questionnaire Thrive Questionnaire Date Thrive assessed: 03/20/25 I am a: Patient What is your living situation today?: I have a steady place to live Within the past 12 months, did the food you bought not last and you didn't have the money to get more?: Never true Within the past 12 months, did you worry whether your food would run out before you got money to buy more?: Never true Do you have trouble paying for medicines?: No Do you have trouble getting transportation to medical appointments?: No Please select the resources that you would like help with: Utilities THRIVE Score: 0 AUDIT C Alcohol Use Questionnaire (AUDIT-C) 1. How often do you have a drink containing alcohol?: Never 2. How many drinks containing alcohol do you have on a typical day when you are drinking?: 1 or 2 3. How often do you have six or more drinks on one occasion?: Never Total Score: 0 FRANCISCA-7 AMB Questionnaire FRANCISCA-7 Date FRANCISCA - 7 assessed: 01/25/24 Feeling nervous, anxious, or on edge: 0 = Not at all Not being able to stop or control worryin = Not at all Worrying too much about different things: 0 = Not at all Trouble relaxin = Not at all Being so restless that it is hard to sit still: 3 = Nearly every day Becoming easily annoyed or irritable: 0 = Not at all Feeling afraid as if something awful might happen: 0 = Not at all Total FRANCISCA-7 score (0-4 normal; 5-9 mild; 10-14 moderate; 15-21 severe): 3 Source: Developed by Drs. Godwin Bryan, Harleen Singh, Yair Cueto and colleagues, with an educational jorge a from [employer]. FRANCISCA-7 Assessment Billing FRANCISCA-7 Assessment Tool: FRANCISCA-7 Assessment 01852 Physical exam (Primary Care) Vital Signs: Last Vital Signs Pulse 85 03/27/25 15:39 Resp 16 03/27/25 15:39 BP 112/66 03/27/25 15:39 Pulse Ox 96 03/27/25 15:39 Oxygen Delivery Method Room Air 03/27/25 15:39 BMI result Body Mass Index 30.3 Tobacco/Smoking Status: Tobacco use Status Tobacco use date assessed 03/27/25 03/27/25 15:41 Patient Tobacco Use Status Former Tobacco user 03/27/25 15:41 Tobacco use type Cigarette 03/27/25 15:41 e-Cigarette/Vaping Use Never Used 03/27/25 15:41 Thrive Assessment: Date of Thrive Assessment Date Thrive assessed 03/20/25 03/27/25 15:41 Coding Level of Care Code Est Pt Prev Care 40-64y(87700) Diagnoses Smoker F17.200 Physical exam Z00.00 Screening PSA (prostate specific antigen) Z12.5 Additional Codes FRANCISCA-7 Assessment Billing - FRANCISCA-7 Assessment Tool: FRANCISCA-7 Assessment 02023 ([id number]) Assessment & Plan Assessment & Plan (1) Smoker: Code(s): F17.200 - Nicotine dependence, unspecified, uncomplicated Category: Social Hx (2) Physical exam: Code(s): Z00.00 - Encounter for general adult medical examination without abnormal findings Category: Medical (3) Screening PSA (prostate specific antigen): Code(s): Z12.5 - Encounter for screening for malignant neoplasm of prostate Category: Medical Plan . Orders: Orders Comprehensive [place]. Panel Fast Today Z00.00 - Encounter for general adult medical examination without abnormal findings UA CC w/rflx Micro + Cult Today Z00.00 - Encounter for general adult medical examination without abnormal findings Complete Blood Count Auto Diff Today Z00.00 - Encounter for general adult medical examination without abnormal findings TSH reflex Free T4 Today Z00.00 - Encounter for general adult medical examination without abnormal findings Lipid Panel Today Z00.00 - Encounter for general adult medical examination without abnormal findings Prostate Specific Antigen Scr Today Z12.5 - Encounter for screening for malignant neoplasm of prostate Referrals Lung Cancer Screening Referral F17.200 - Nicotine dependence, unspecified, uncomplicated Cologuard Test Z12.11 - Encounter for screening for malignant neoplasm of colon, Z12.12 - Encounter for screening for malignant neoplasm of rectum
[2025-03-27 15:39] VITALS: BP 112/66; PULSE 85; RESP 16; O2SAT 96; BMI 30.3
== END 2025-03-27 16:32 | disposition home or self-care (01) ==
LOC: HO.HMCC 15:15
PROVIDERS: PCP Nurse Practitioner Family; Visit Provider Nurse Practitioner Family
DX: F17.200 Nicotine dependence, unspecified, uncomplicated (principal); Z00.00 Encounter for general adult medical examination without abnormal findings; Z12.5 Encounter for screening for malignant neoplasm of prostate

== ENCOUNTER → 2025-03-27 15:14 | Outpatient (BNVA) | payer OTHER, SELFPAY | PROVIDERS: PCP Nurse Practitioner Family; Visit Provider Nurse Practitioner Family | DX: Z00.00 Encounter for general adult medical examination without abnormal findings (principal); F17.210 Nicotine dependence, cigarettes, uncomplicated | CPT/HCPCS: 96127; 99396 ==

== ENCOUNTER 2025-03-28 09:01 | Outpatient (REF) | payer OTHER, SELFPAY ==
[2025-03-28 10:50] LABS: Appearance Urine Clear; Glucose Urine UA Negative (Negative); PH 6.5 (5.0-9.0); Specific Gravity - Urine 1.020 (1.005-1.025)
[2025-03-28 11:10] LABS: MANUAL DIFF FLAG NO
[2025-03-28 11:19] LABS: Hematocrit 42.3 % (42.0-52.0); Hemoglobin 14.0 g/dl (14.0-18.0); Imm Gran Abs Auto 0.01 X10*3/uL (0.00-0.03); Imm Gran Pct Auto 0.2 % (0.0-0.4); Lymphocytes Absolute Auto 1.5 X10*3/uL (1.2-4.9); Mean Corpuscular HGB Conc 33.1 g/dl (31.0-36.0); Mean Corpuscular Hemoglobin 31.9 pg (27.0-33.0); Mean Corpuscular Volume 96.4 fL (80.0-98.0); NRBC Abs Auto 0.000 X10*3/uL (0.0-0.012); NRBC Pct Auto 0.0 /100WBC (0.0-0.2); Platelet Count 276 X10*3/uL (160-400); Red Blood Count 4.39 X10*6/uL (4.60-5.80); White Blood Count 5.9 X10*3/uL (4.8-10.8)
[2025-03-28 12:04] LABS: Alanine Aminotransferase 42 U/L (0-40); Albumin Level 4.4 g/dL (3.5-5.0); Alkaline Phosphatase 89 U/L (39-117); Anion Gap 13 (12-20); Aspartate Amino Transferase 34 U/L (5-37); Blood Urea Nitrogen 21 mg/dL (9-16); Calcium 9.0 mg/dL (8.4-10.2); Carbon Dioxide 27 mmol/L (22-29); Chloride 107 mmol/L (96-108); Cholesterol 138 mg/dL (<200); Estimated Glomerular Filt Rate > 60; HDL Cholesterol 52 mg/dL (>40); Potassium 4.5 mmol/L (3.3-5.1); Sodium 142 mmol/L (135-145); Total Protein 7.0 g/dL (6.5-8.0); Triglycerides 46 mg/dL (<150)
[2025-03-28 12:26] LABS: Folate 8.4 ng/mL (> or = 4.0); Vitamin B12 384 pg/mL (200-900)
[2025-03-28 12:49] LABS: Free T4 (Free Thyroxine) 0.96 ng/dL (0.71-1.85)
== END 2025-03-28 09:02 | disposition home or self-care (01) ==
LOC: HO.HMGCLDS 09:01
PROVIDERS: PCP Nurse Practitioner Family; Visit Provider Nurse Practitioner Family
DX: Z00.00 Encounter for general adult medical examination without abnormal findings (principal); Z12.5 Encounter for screening for malignant neoplasm of prostate; E53.8 Deficiency of other specified B group vitamins; E55.9 Vitamin D deficiency, unspecified
CPT/HCPCS: 36415; 80053; 80061; 81003; 82306; 82607; 82746; 84153; 84439; 84443; 85025

== ENCOUNTER 2025-04-03 07:26 | Outpatient (REF) | payer OTHER, SELFPAY ==
[2025-04-03 10:52] LABS: HBS Num1 568.85 mIU/mL (0-7.99); HBc Num1 0.11 S/CO (0.00-0.79); HBsAGNum1 0.39 S/CO (0.00-0.99); Hepatitis A Antibody IgM 0.25 Index (0-0.79); Hepatitis B Surface Antigen Negative (Negative); ~HepC Num1 0.20 S/CO (0.00-0.79); ~Hepatitis A Antibody IgM Nonreactive (Nonreactive); ~Hepatitis B Surface Antibody REACTIVE (Nonreactive); ~Hepatitis C Antibody Nonreactive (Nonreactive)
== END 2025-04-03 07:27 | disposition home or self-care (01) ==
LOC: HO.HMGCLDS 07:26
PROVIDERS: PCP Nurse Practitioner Family; Visit Provider Nurse Practitioner Family
DX: Z11.59 Encounter for screening for other viral diseases (principal); R74.8 Abnormal levels of other serum enzymes
CPT/HCPCS: 36415; 86015; 86704; 86706; 86709; 86803; 87340

== ENCOUNTER 2025-05-16 08:45 | Outpatient (REF) | payer OTHER, SELFPAY ==
--- NOTE | ~2025-05-16 | US_ITS ---
CLINICAL HISTORY: R74.8 - Abnormal levels of other serum enzymes US abdomen complete Comparison: US/NM/SR - US ABDOMEN COMPLETE WITH LIVER ELASTOGRAPHY - 09/11/24 15:14 EST Findings: The pancreas is poorly visualized. The liver is normal in size and echotexture. There is no intrahepatic bile duct dilatation. The common duct is 2.8 mm in diameter. The gallbladder is normal. There is no sonographic Damon sign. The main portal vein is antegrade. The right kidney is 9.1 cm in length. There is mild dilatation of the central collecting system. The left kidney is 8.3 cm in length. There is a lower pole 8 mm cyst. The spleen is normal. No ascites. IMPRESSION: 1. No significant abnormalities are noted. Findings as above. This document has been electronically signed by: Ramírez Pierce MD on 05/17/2025 10:19:34
== END 2025-05-16 08:46 | disposition home or self-care (01) ==
LOC: HO.HMGCX 08:45
PROVIDERS: PCP Nurse Practitioner Family; Visit Provider Nurse Practitioner Family
DX: R74.8 Abnormal levels of other serum enzymes (principal)
CPT/HCPCS: 76700

== ENCOUNTER → 2025-05-16 08:59 | Outpatient (BNV) | payer OTHER, SELFPAY | PROVIDERS: PCP Nurse Practitioner Family; Visit Provider Radiology Diagnostic Radiology | DX: R74.8 Abnormal levels of other serum enzymes (principal) | CPT/HCPCS: 76700 ==